=== PATIENT | female | born 1950 | race Caucasian/White ===

== ENCOUNTER 2023-07-13 12:09 | Outpatient (AMB) | payer MEDICARE, SELFPAY ==
--- NOTE | 2023-07-13 11:17 | MHC.OFFWIV ---
Intake Vital Signs 07/13/23 11:30 Weight 181 lb BP 110/70 Blood Pressure Location Rt brachial Position Sitting Pulse 79 Pulse Source Pulse Oximeter Temp 97.8 F Temp Source Temporal Artery Scan Pulse Oximetry (%) 97 Oxygen Delivery Method Room Air Intake Visit Reasons: EST/not feeling well/stomach issues Intake Note: Pt is here c/o body aches, swollen eyes, sore throat and feeling tired. Patient Tobacco Use Status: Never used Tobacco Allergies latex Adverse Reaction (Mild, Verified 07/13/23 11:26) Unknown crystal Adverse Reaction (Mild, Uncoded 07/13/23 11:26) Unknown Do you need a note to return to daycare/school/sports/work: No HPI HPI Comments History of Present Illness Details 9-year-old female that presents for generalized fatigue sore throat swelling of the face and nausea. Denies fever chills symptoms have been present since Tuesday. Denies chest pain or shortness of breath cough PFSH Social History Patient Tobacco Use Status: Never used Tobacco Review of Systems Const Reports fatigue Endo Reports fatigue Physical Exam Vital Signs: Last Vital Signs Temp 97.8 F 07/13/23 11:30 Pulse 79 07/13/23 11:30 BP 110/70 07/13/23 11:30 Pulse Ox 97 07/13/23 11:30 Oxygen Delivery Method Room Air 07/13/23 11:30 Const General: cooperative, no acute distress and alert Orientation/consciousness: patient oriented x3 Limitations: no limitations HEENT Head: Yes normal to inspection Ears: hearing grossly normal bilaterally and external ears normal General nose exam: Normal external nose present Eyes General: appearance normal, both eyes and all related structures Neck Neck: Yes normal visual inspection Chest Chest palpation & inspection: normal inspection of the chest Resp Effort & Inspection: normal respiratory effort, able to speak in complete sentences and no audible wheezes Auscultation: clear to auscultation bilaterally Cardio Rate: regular rate Rhythm: regular rhythm GI Inspection: Yes normal to inspection Palpation (GI): Soft to palpation and nontender Skin General skin exam: no rashes or lesions noted Neuro General: patient oriented x3 Psych Appearance: grossly normal Mental Status: mental status grossly normal Speech and movement: Normal speech and movement present Affect: normal affect Attitude: cooperative Thought process: Normal thought process present Thought content: Normal thought content present Results AMB Rapid Strep AMB Rapid Strep Negative Last Edit by Britney Estrada CMA on 07/13/23 11:32 Results Reviewed Results Reviewed: Laboratory Last Values Strep Scn Rapid Clinic Negative 07/13/23 11:31 Assessment & Plan Assessment & Plan (1) Viral illness: Code(s): B34.9 - Viral infection, unspecified Plan: VSS. Exam patient presents alert and oriented no acute distress exam is otherwise unremarkable note above. Patient with the myriad of symptoms that do not seem to have pointed any clear etiology. If suspicion is viral illness. Will send off cold flu and RSV. Will order EKG given fatigue and weakness. Low suspicion for mono given age group no fever low suspicion to Gomez illness given no recent bites. EKG shows sinus rhythm normal axis with normal intervals no ST segment changes. This time recommend continued symptomatic treatment with fluids rest and Tylenol Motrin as needed. Offer strict return precautions. Discharge instructions, follow up and treatment are discussed with patient in my usual fashion. Alternatives in treatment are also discussed. The patient will return for worsening symptoms or as needed. Advised that any labs/imaging ordered will be followed up on and contact made if further treatment needed. Counseled that patient's condition may require further evaluation and/or treatment. Symptoms of concern for worsening disorder discussed in detail in my customary manner. Patient does verbalize understanding of the plan, there are no apparent barriers to communication. The patient is given the opportunity to ask questions and have them answered to his/her satisfaction Orders: Orders AMB Rapid Strep Screen Today Z13.9 - Encounter for screening, unspecified SARS-CoV2/FLU/RSV Today R09.89 - Other specified symptoms and signs involving the circulatory and respiratory systems AMB EKG-In Office Today R53.1 - Weakness Coding Level of Care Code Est Pt Level 3 (38348) Diagnoses Viral illness B34.9
[2023-07-13 11:30] VITALS: BP 110/70; PULSE 79; TEMP 36.6; O2SAT 97
== END 2023-07-13 12:33 | disposition home or self-care (01) ==
PROVIDERS: PCP Internal Medicine; Visit Provider Physician Assistant
DX: B34.9 Viral infection, unspecified (principal); Z13.9 Encounter for screening, unspecified
CPT/HCPCS: 87880; 99213

== ENCOUNTER 2023-07-13 13:37 | Outpatient (REF) | payer MEDICARE, SELFPAY ==
[2023-07-13 14:52] LABS: Influenza A PCR NEGATIVE (Negative); Influenza B PCR NEGATIVE (Negative); Resp Syncy Virus RNA Qual PCR NEGATIVE (Negative); SARS COV2 PCR INHOUSE NEGATIVE (Negative)
== END 2023-07-13 13:38 | disposition home or self-care (01) ==
LOC: HO.LNP 13:37
PROVIDERS: Visit Provider Physician Assistant
DX: R09.89 Other specified symptoms and signs involving the circulatory and respiratory systems (principal); Z11.52 Encounter for screening for COVID-19
CPT/HCPCS: 0241U

== ENCOUNTER 2023-10-03 09:36 | Outpatient (AMB) | payer MEDICARE, SELFPAY ==
--- NOTE | 2023-10-03 10:12 | MHC.OFFWIV ---
Intake Vital Signs 10/03/23 10:22 Height 5 ft 6.5 in Weight 187 lb 6 oz BMI 29.8 BP 148/80 H Blood Pressure Location Rt brachial Position Sitting Pulse 67 Pulse Source Pulse Oximeter Temp 97.7 F Temp Source Oral Pulse Oximetry (%) 97 Oxygen Delivery Method Room Air Intake Visit Reasons: EP Lft Shoulder pain 116-1995 Intake Note: Pt states she was doing yoga with her granddaughter on an feels pain whenever she moves it. Patient Tobacco Use Status: Never used Tobacco Allergies latex Adverse Reaction (Mild, Verified 10/03/23 10:24) Unknown crystal Adverse Reaction (Mild, Uncoded 07/13/23 11:26) Unknown HPI HPI Comments History of Present Illness Details Patient presents to the walk in for complaint of left shoulder pain after injury 4 days ago She was doing yoga with her granddaughter and noticed some discomfort after. Pain with ROM, most discomfort with overhead reach. Took motrin OTC but states she did not notice any relief. Denies chest pain, palpitations, headache, weakness, dizziness. PFSH Social History Patient Tobacco Use Status: Never used Tobacco Physical Exam Vital Signs: Last Vital Signs Temp 97.7 F 10/03/23 10:22 Pulse 67 10/03/23 10:22 BP 148/80 H 10/03/23 10:22 Pulse Ox 97 10/03/23 10:22 Oxygen Delivery Method Room Air 10/03/23 10:22 BMI result Body Mass Index 29.8 General: awake, alert, oriented. Answers questions appropriately. Fully engaged in examination. Skin: warm, dry, intact HEENT: Normocephalic. Hearing intact. Cardiac: External chest normal in appearance. Respiratory: No cough, audible wheezing or stridor. Abdomen: without gross distension. MS: No obvious swelling or deformities. Left shoulder: limited ROM, pain with overhead reach. Tenderness to palpation over AC joint. Neurological: Oriented to person, place, time and situation. Thought process intact. No gait abnormalities appreciated. Psychiatric: Appropriate mood and affect. Good judgment and insight. Results Reviewed Results Reviewed: XR left shoulder independently reviewed: no fracture or dislocation. Assessment & Plan Assessment & Plan (1) Left shoulder pain: Code(s): M25.512 - Pain in left shoulder (2) Painful arc syndrome of left shoulder: Code(s): M75.102 - Unspecified rotator cuff tear or rupture of left shoulder, not specified as traumatic Plan Left shoulder pain after injury 4 days ago Xray ordered, no acute fracture or disclocation. Sling applied to LUE. Patient advised on use, limit use and continue to do ROM exercised that do not ellicit pain. Tylenol/motrin as needed Follow up with ortho, patient established with [facility] and prefers to make an appt with their office. Return to walk in as needed for any new or worsening symptoms. Orders: Orders XR shoulder LT min 2V Today M25.512 - Pain in left shoulder Coding Level of Care Code Est Pt Level 4 (54499) Diagnoses Left shoulder pain M25.512 Painful arc syndrome of left shoulder M75.102
[2023-10-03 10:22] VITALS: BP 148/80; PULSE 67; TEMP 36.5; O2SAT 97; BMI 29.8
== END 2023-10-03 11:52 | disposition home or self-care (01) ==
PROVIDERS: PCP Internal Medicine; Visit Provider Registered Nurse Emergency
DX: M25.512 Pain in left shoulder (principal); M75.102 Unspecified rotator cuff tear or rupture of left shoulder, not specified as traumatic
CPT/HCPCS: 99213

== ENCOUNTER 2023-10-03 10:48 | Outpatient (REF) | payer MEDICARE, SELFPAY ==
--- NOTE | ~2023-10-03 | XR_ITS ---
EXAMINATION: XR SHOULDER, LEFT CLINICAL INFORMATION: Left shoulder pain COMPARISON: None available. TECHNIQUE: AP external rotation, Grashey, scapular Y, and axillary views of the left shoulder. FINDINGS: The bones and soft tissues are unremarkable. Tiny osteophyte may be present at the inferior aspect of the glenohumeral joint on the humeral head. No fracture. Glenohumeral and acromioclavicular alignment is anatomic with normal joint space. No abnormal soft tissue calcifications. XR/XR shoulder LT min 2V IMPRESSION: No acute finding. Minimal degenerative changes.
== END 2023-10-03 10:49 | disposition home or self-care (01) ==
LOC: HO.HMGCX 10:48
PROVIDERS: PCP Internal Medicine; Visit Provider Registered Nurse Emergency
DX: M25.512 Pain in left shoulder (principal)
CPT/HCPCS: 73030

== ENCOUNTER 2024-09-04 14:40 | Emergency (ER) | payer MEDICARE, SELFPAY ==
--- NOTE | ~2024-09-04 | XR_ITS ---
EXAMINATION: XR HAND/WRIST, LEFT CLINICAL INFORMATION: Deformity status-post fall. COMPARISON: None available. TECHNIQUE: PA, lateral, and oblique views of the left hand and wrist are submitted, together with a dedicated navicular view. FINDINGS: There is bony demineralization. A complex distal radial metaphyseal fracture is seen. There is intra-articular extension of the fracture pattern. The distal radial fracture fragment shows posterior displacement by greater than one half shaft width, with apex volar angulation. There is overriding of fracture fragments by approximately 1.5 cm. The proximal and distal carpal rows are intact. The distal ulna is intact, and there is disruption of the distal radioulnar ligament. There is mild osteoarthritic change of the first carpometacarpal joint. There is mild osteoarthritic change of the interphalangeal joint of the thumb and of the third and fourth distal interphalangeal joints. There is generalized soft tissue swelling of the wrist. No soft tissue gas or foreign body is seen. XR/XR hand wrist LT IMPRESSION: A complex, displaced fracture seen of distal right radial metaphysis. Electronically signed by: Evan Russell MD 09/04/2024 03:32 PM EST
--- NOTE | ~2024-09-04 | XR_ITS ---
EXAMINATION: LEFT ELBOW, LEFT WRIST CLINICAL INFORMATION: Trauma COMPARISON: Left Hand and wrist radiographs from 3:02 PM today TECHNIQUE: 3 views elbow, 3 views wrist FINDINGS: Detail is obscured by a splint. 3 views of the elbow show no effusion, fracture or dislocation. Imaging of the wrist shows an impacted intra-articular distal radial fracture. The degree of impaction appears slightly less compared to the prior study, but the degree of dorsal angulation appears the same. No other definite fractures are seen. Degenerative changes are present at the first CMC joint. XR/XR wrist LT 2V IMPRESSION: Impacted comminuted intra-articular distal radial fracture with dorsal angulation. No other fractures are seen. Electronically signed by: Mark Gill MD 09/04/2024 07:27 PM [facility]
--- NOTE | ~2024-09-04 | XR_ITS ---
EXAMINATION: LEFT ELBOW, LEFT WRIST CLINICAL INFORMATION: Trauma COMPARISON: Left Hand and wrist radiographs from 3:02 PM today TECHNIQUE: 3 views elbow, 3 views wrist FINDINGS: Detail is obscured by a splint. 3 views of the elbow show no effusion, fracture or dislocation. Imaging of the wrist shows an impacted intra-articular distal radial fracture. The degree of impaction appears slightly less compared to the prior study, but the degree of dorsal angulation appears the same. No other definite fractures are seen. Degenerative changes are present at the first CMC joint. XR/XR elbow LT min 3V IMPRESSION: Impacted comminuted intra-articular distal radial fracture with dorsal angulation. No other fractures are seen. Electronically signed by: Mark Gill MD 09/04/2024 07:27 PM [facility]
[2024-09-04 14:42] VITALS: BP 149/71; PULSE 90; RESP 18; TEMP 37; O2SAT 99; BMI 26.6
--- NOTE | 2024-09-04 16:24 | PC.NURSE ---
patient's two rings removed from left ring finger and placed in belongings bag. also requesting right ring removed as well
[2024-09-04] MEDS: Lidocaine HCl 1 % MPF 5 ML VIAL 20 ML INFILTRATI (17:29)
[2024-09-04] MEDS: Morphine Sulfate 4 MG/ML CARTRIDGE IM (17:29)
[2024-09-04] MEDS: Ondansetron ODT 4 MG TAB.RAPDIS TRANSLINGU (17:30)
--- NOTE | 2024-09-04 17:30 | ED.GENADULT ---
HPI - General Adult General Chief complaint: Fall Stated complaint: L wrist injury Time Seen by Provider: 09/04/24 16:49 Source: patient, RN notes reviewed and old records reviewed Mode of arrival: ambulatory Limitations: no limitations History of Present Illness ED Provider: Aayush HPI narrative: 73-year-old female presents for evaluation of a left wrist injury. Patient reports that she was hiking this afternoon around 3:00 p.m.. She reports that she slipped and fell onto her left outstretched arm. She has 10/10 pain to the left wrist. She has some numbness and tingling extending into the left hand. She had not hit her head or lose consciousness pain Denies any left shoulder, elbow pain. She is not on any anticoagulation Related Data Home Medications ?Medication ?Instructions ?Recorded ?Confirmed ascorbic acid (vitamin C) 500 mg mg PO 07/13/23 capsule aspirin 81 mg chewable tablet 81 mg PO DAILY 07/13/23 cholecalciferol (vitamin D3) 25 25 mcg PO DAILY 07/13/23 mcg (1,000 unit) capsule isosorbide mononitrate 30 mg 30 mg PO DAILY 07/13/23 tablet,extended release 24 hr olmesartan 20 mg tablet 20 mg PO DAILY 07/13/23 oxybutynin chloride 10 mg 10 mg PO DAILY 07/13/23 tablet,extended release 24 hr pantoprazole 40 mg tablet,delayed 40 mg PO BID 07/13/23 release rosuvastatin 5 mg tablet 5 mg PO DAILY 07/13/23 Previous Rx's ?Medication ?Instructions ?Recorded morphine 15 mg immediate release 15 mg PO Q4-6H PRN severe pain 09/04/24 tablet (scale score 7-10) #12 tabs ondansetron 4 mg disintegrating 4 mg PO Q8H PRN nausea and 09/04/24 tablet vomiting #20 tabs Allergies Allergy/AdvReac Type Severity Reaction Status Date / Time latex AdvReac Mild Unknown Verified 09/04/24 14:46 ciprofloxacin [From Cipro] AdvReac Rash Verified 09/04/24 14:46 Sulfa (Sulfonamide AdvReac Rash Verified 09/04/24 14:46 Antibiotics) crystal AdvReac Mild Unknown Uncoded 09/04/24 14:46 Review of Systems Constitutional: Constitutional: Denies body ache(s), Denies chills, Denies fever(s) and Denies frequent falls Eyes: Eyes: Denies blurry vision ENT: Denies vertigo and Denies dizziness Cardiovascular: Cardiovascular: Denies chest pain, Denies syncope and Denies dyspnea Respiratory: Respiratory: Denies cough and Denies dyspnea Musculoskeletal: Musculoskeletal: Reports arthralgias, Reports joint swelling, Reports limited range of motion and Reports stiffness Integumentary/Breasts: Skin/Breast: Denies erythema and Denies wounds Neurologic: Denies vertigo, Denies dizziness, Denies syncope and Denies frequent falls [facility] Social History Social History Patient Tobacco Use Status: Never used Tobacco Advance Directives: No Advance Directives Information Provided: Yes Physical Exam ED Vital Signs: Vital Signs - 24 hr 09/04/24 14:42 Temperature 98.6 F Pulse Rate 90 Respiratory Rate 18 Blood Pressure 149/71 H Pulse Oximetry 99 Oxygen Delivery Method Room Air BMI result Body Mass Index 26.6 Const General: healthy appearing, comfortable, no acute distress, alert and awake Nutritional Appearance: well nourished Orientation/consciousness: patient oriented x3 HENMT Head: Yes normocephalic and Yes atraumatic Eyes Eyelids: Yes eyelids normal Conjunctivae: conjunctivae normal Sclerae: sclerae normal Corneas: corneas normal Pupils: Equal, round and reactive pupils present EOM: EOMs intact bilaterally Neck Neck: Yes full ROM Resp Effort & Inspection: normal respiratory effort, able to speak in complete sentences and not labored Skin General skin exam: elasticity normal Neuro General: patient oriented x3 Cranial nerves: Yes Equal, round and reactive pupils present and Yes Bilaterally intact EOM present Cognition (Neuro): normal cognition Extrem Other: There was an obvious deformity to the left wrist was marked edema and ecchymosis. The distal radius has a dorsal deformity. Radial pulses are 2+ and equal. Distal sensation and capillary refill intact the patient is able to move all fingers of the left hand. There was no tenderness to the left elbow Medications Administered Discontinued Medications Generic Name Dose Route Start Last Admin Trade Name Freq PRN Reason Stop Dose Admin Lidocaine HCl 20 ml 09/04/24 17:18 09/04/24 17:29 Lidocaine Hcl 1 % Mpf 5 Ml Vial INFILTRATI 09/04/24 17:19 20 ml ONCE ONE Administration Morphine Sulfate 4 mg 09/04/24 17:04 09/04/24 17:29 Morphine Sulfate 4 Mg/Ml Cartridge IM 12/24/24 17:05 4 mg ONCE ONE Administration Protocol Ondansetron HCl 4 mg 09/04/24 17:04 09/04/24 17:30 Ondansetron Odt 4 Mg Tab.Ronamarino JEFFU 09/04/24 17:05 4 mg ONCE ONE Administration Procedures Orthopedic Joint Reduction Joint #1: Time Out Performed: Yes Side: left Joint Reduction Location: wrist Analgesia: hematoma block Local Anesthesia: lidocaine 1% Amount of anesthesic used (mL): 10 Shoulder Technique Used (if applicable): traction/counter-traction Technique used: traction/counter-traction and direct manipulation Post-reduction neuro exam: intact and no change Post-reduction vascular: intact and no change Post Reduction X-Ray Obtained: Yes Post Reduction X-Ray Results: not reduced (Some improvement in the displacement of the distal radius, however there is still a displaced fracture) Splint Applied: Yes Patient Tolerated Procedure: well Medical Decision Making Medical Decision Making MDM Narrative: Patient has a complex fracture of the left distal radius. The ulna appears intact. I discussed with orthopedics who agrees with hematoma block, finger traps and attempting to reduce the radial fracture. There are no other injuries, the patient denies head strike, no obvious trauma to the head or neck. She is not altered Differential Diagnosis Differential Diagnoses: The differential diagnosis associated with the presentation includes Left wrist fracture Left wrist sprain Contusion Dislocation Consult Healthcare Provider Management of the patient was discussed with: Instrument Maker And Repairer (Alfredo Alfredo, orthopedics) Independent Interpretation I performed an independent interpretation of an: Plain X-Ray (Distal radius fracture) Radiology Impression Discussion of test interpretation with radiology: I have reviewed the radiologist's reading. Radiologist Impression: FINDINGS: There is bony demineralization. A complex distal radial metaphyseal fracture is seen. There is intra-articular extension of the fracture pattern. The distal radial fracture fragment shows posterior displacement by greater than one half shaft width, with apex volar angulation. There is overriding of fracture fragments by approximately 1.5 cm. The proximal and distal carpal rows are intact. The distal ulna is intact, and there is disruption of the distal radioulnar ligament. There is mild osteoarthritic change of the first carpometacarpal joint. There is mild osteoarthritic change of the interphalangeal joint of the thumb and of the third and fourth distal interphalangeal joints. There is generalized soft tissue swelling of the wrist. No soft tissue gas or foreign body is seen. XR/XR hand wrist LT IMPRESSION: A complex, displaced fracture seen of distal right radial metaphysis. Electronically signed by: Evan Russell MD 09/04/2024 03:32 PM [facility] Discharge Plan Discharge Clinical Impression: Fracture of wrist Patient Disposition: Home, Self-Care Instructions: Wrist Fracture in Adults (ED) Additional Instructions: You have a fracture of the distal radius. The ulna is intact. Keep the splint on until you follow-up with orthopedics. I recommend that you call on to schedule follow-up. You may follow-up with doing orthopedics if you prefer, but I also placed a referral to our orthopedic team Use ibuprofen/Tylenol for pain. You may use morphine for more severe, breakthrough pain This may make you drowsy, do not drink alcohol or drive after taking it Prescriptions: New morphine 15 mg tablet 15 mg PO Q4-6H PRN (Reason: severe pain (scale score 7-10)) Qty: 12 0RF Rx Instructions: Partial Fill upon patient request. ondansetron 4 mg tablet,disintegrating 4 mg PO Q8H PRN (Reason: nausea and vomiting) Qty: 20 0RF No Action olmesartan 20 mg tablet 20 mg PO DAILY isosorbide mononitrate 30 mg tablet extended release 24 hr 30 mg PO DAILY rosuvastatin 5 mg tablet 5 mg PO DAILY pantoprazole 40 mg tablet,delayed release (DR/EC) 40 mg PO BID aspirin 81 mg tablet,chewable 81 mg PO DAILY oxybutynin chloride 10 mg tablet extended release 24hr 10 mg PO DAILY cholecalciferol (vitamin D3) 25 mcg (1,000 unit) capsule 25 mcg PO DAILY ascorbic acid (vitamin C) 500 mg capsule PO Print Language: [place]
[2024-09-04 19:10] VITALS: BP 132/86; PULSE 85; RESP 16; TEMP 37; O2SAT 99
== END 2024-09-04 19:10 | disposition home or self-care (01) ==
PROVIDERS: Emergency Provider Emergency Medicine; PCP Internal Medicine
DX: S62.102A Fracture of unspecified carpal bone, left wrist, initial encounter for closed fracture (principal); M79.642 Pain in left hand; R60.0 Localized edema; M25.532 Pain in left wrist; M25.522 Pain in left elbow; W20.8XXA Other cause of strike by thrown, projected or falling object, initial encounter; Y93.01 Activity, walking, marching and hiking; Y92.828 Other wilderness area as the place of occurrence of the external cause; Y99.8 Other external cause status; Z79.899 Other long term (current) drug therapy
CPT/HCPCS: 25605; 29125; 73080; 73100; 73110; 73130; 96372; 99284; J2003; J2270

== ENCOUNTER 2025-05-20 09:42 | Outpatient (AMB) | payer MEDICARE, SELFPAY ==
--- OUTSIDE RECORDS SUMMARY | 2025-05-20 11:05 | XMS_ITS | Encounter Summary ---
Author Organization [facility] Address [address] [place] [address] Care Team Providers Care Trimming Machine Set Up Operator Name Role Phone Nader Rodgers MD Primary Care Provider [phone] Everett Degroot MD Unavailable Unava ilable Juan Rice MD Unavailable [phone] Maxwell Leonardo MD Unavailable Unavailable Laura Delaney APRN Unavailable [phone] Encounter Details Date Type Department Care Team (Late st Contact Info) Description 01/10/2020 Scanned Document [facility] [place] at [address] [address] Provider, Generic Social History Tobacco Use Types Packs/Day Years Used Date Smoking Tobacco: Never Assessed Comments Unknown Sex and Gender Information Value Date Recorded Sex Assigned at Not on file Legal Sex Female 3:56 PM EDT Gender Identity Not on file Sexual Orientation Not on file COVID-19 Exposure Response Date Recorded In the last month, have you been in contact with someone who was confirmed or suspected to have Coronavirus / COVID-19? No / Unsure 12/27/2019 12:33 PM EDT documented as of this encounter Plan of Treatment Not on file documented as of this encounter Procedures Procedure Name Priority Date/Time Associated Diagnosis Comments CARDIOLOGY ECHO 01/10/2020 2:23 PM EDT documented in this encounter Results * CARDIOLOGY ECHO (01/10/2020 2:23 PM EDT) Anatomical Region Laterality Modality Other Narrative 01/10/2020 2:23 PM EDT Ordered by an unspecified provider. us Generic Provider HX AMB PROCEDURES Final Result documented in this encounter Visit Diagnoses Not on filedocumented in this encounter Care Teams Trimming Machine Set Up Operator Relationship Specialty Start Date End Date Nader Rodgers MD [address] [place] [address] PCP - General 12/27/19 Everett Degroot MD [address] [place] [address] [employer] Captain Cardiovascular Disease 12/27/19 Juan Rice MD [address] [place] [address] Surgery, Orthopedic 02/12/20 Maxwell Leonardo MD [address] [place] [id number] Referring Provider Gastroenterology 02/12/20 Laura Delaney APRN [address] [place] [id number] Advanced Practitioner Sleep Medicine 02/12/20 documented as of this encounter
--- OUTSIDE RECORDS SUMMARY | 2025-05-20 11:05 | XMS_ITS | Clinical Summary ---
Author Organization [facility] Address [address] [place] [address] Care Team Providers Care Orchestra Conductor Name Role Phone Antonio Cristobal MD Primary Care Provider [phone] Allergies Active Allergy Reactions Criticality Noted Date Comments Ciprofloxacin 07/26/2018 Medications Medication Sig Dispensed Refills Start Date End Date Status dilTIAZem (dilTIAZem CD) 240 MG 24 hr capsule Take 240 mg by mouth daily. 0 Active pantoprazole (PROTONIX) 40 MG tablet Take 40 mg by mouth every morning on an empty stomach. 0 Active isosorbide dinitrate (ISORDIL) 30 MG tablet Take 30 mg by mouth 4 (four) times a day. 0 Active Active Problems Problem Noted Date Diagnosed Date Snoring 08/16/2018 Polycythemia, secondary 07/26/2018 Social History Tobacco Use Types Packs/Day Years Used Date Smoking Tobacco: Never Smokeless Tobacco: Never Alcohol Use Standard Drinks/Week Comments Yes 0 (1 standard drink = 0.6 oz pur e alcohol) weekend Sex and Gender Information Value Date Recorded Sex Assigned at Not on file Gender Identity Not on file Sexual Orientation Not on file Last Filed Vital Signs Vital Sign Reading Time Taken Comments Blood Pressure 149/75 08/16/2018 10:55 AM EST Pulse 65 08/16/2018 10:55 AM EST Temperature 36.5 C (97.7 F) 08/16/2018 10:55 AM EST Respiratory Rate - - Oxygen Saturation - - Inhaled Oxygen Concentration - - Weight 83.5 kg (184 lb) 08/16/2018 10:54 AM EST Height 165.1 cm (5' 5 ) 08/16/2018 10:54 AM EST Body Mass Index 30.62 08/16/2018 10:54 AM EST Plan of Treatment Health Maintenance Due Date Last Done Comments Hepatitis C Screening 1950 COVID-19 Vaccine (#1) 04/30/1951 Depression Screening 1964 Preventative Health Evaluation 1970 DTap / Tdap / Td (1 - Tdap) 1971 Colon Cancer Screening (Colonoscopy) 1997 Breast Cancer Screening (Mammogram) 2002 Shingrix-Zoster Vaccine (1 of 2) 2002 Fall Risk Assessment 2017 Osteoporosis Screening (DEXA Scan) 2017 Pneumococcal Vaccine (1 of 1 - PCV) 2017 Influenza Vaccine (#1) 2025 RSV Adult > 60+ Yrs or Pregn ant (1 - 1-dose 75+ series) 2027 Hepatitis B Vaccines Aged Out No long er eligible based on patient's age to complete this topic RSV Ped < 20 months Aged Out No longe r eligible based on patient's age to complete this topic Care Teams Orchestra Conductor Relationship Specialty Start Date End Date Antonio Cristobal MD [address] [facility] [address] [place] [address] PCP - [employer] 07/10/18
--- OUTSIDE RECORDS SUMMARY | 2025-05-20 11:05 | XMS_ITS | Clinical Summary ---
Author Organization [facility] [employer] Address [address] [place] [address] Phone Care Team Providers Care Company Doctor Name Role Phone Nader Rodgers MD Primary Care Provider [phone] Allergies Active Allergy Reactions Criticality Noted Date Comments Ciprofloxacin Hives 07/26/2018 Latex 09/21/2022 Nickel 05/27/2021 Sulfa (Sulfonamide Antibiotics) 06/13 Medications ascorbic acid (VITAMIN C) 500 mg chewable tablet Chew 2 tablets (1,000 mg total) 1 (one) time each day. Active calcium carb/mag/vitamin D2 (RAZRBLQ-TRIZZXRJI-KWVHU IN D2 ORAL) Take 1,200 mg by mouth 1 (one) time each day. Active cholecalciferol (VITAMIN D-3) 25 mcg (1,000 unit) capsule Take 25 mg by mouth daily. Active olmesartan (BENICAR) 20 mg tablet Take 1 tablet (20 mg total) by mouth 1 (one) time each day. Active omega-3 (FISH OIL) 360-1,200 mg capsule Take by mouth. Active valacyclovir HCl (valACYclovir, bulk,) 100 % powder 1 mg by Does not apply route as needed. Active rosuvastatin (CRESTOR) 10 mg tabletIndications:Pure hypercholesterolemia Take 1 tablet (10 mg total) by mouth 1 (one) time each day. 90 each 1 09/29/19 25 Active dilTIAZem XR (DILACOR XR) 240 mg 24 hr capsule TAKE ONE CAPSULE BY MOUTH ONCE DAILY 90 capsule 1 11/02/19 25 Active oxyBUTYnin XL (DITROPAN-XL) 10 mg 24 hr tablet Take 1 tablet (10 mg total) by mouth 1 (one) time each day. Do not crush, chew, or split. Active lactobacillus acidoph-l.bulgar 100 million cell granules in packet Take 1 packet by mouth. Active pantoprazole (PROTONIX) 40 mg EC tabletIndications:Gastro esophageal reflux disease without esophagitis Take 1 tablet (40 mg total) by mouth 1 (one) time each day. Do not crush, chew, or split. 90 each 3 03/18/20 25 026 Active apixaban (Eliquis) 5 mg tabletIndications:Paroxy smal atrial fibrillation (CMS/HCC V24, CMS/HCC V28) TAKE ONE TABLET BY MOUTH TWICE DAILY 180 tablet 1 03/26/20 25 Active isosorbide mononitrate (IMDUR) 30 mg 24 hr tablet TAKE ONE TABLET BY MOUTH ONCE DAILY 90 tablet 1 04/10/20 25 Active cefadroxil 500 mg capsule Take 1 capsule (500 mg total) by mouth 2 (two) times a day for 10 days. 20 capsule 04/23/20 25 025 Active Problems Problem Noted Date Diagnosed Date Paroxysmal atrial fibrillation (CMS/HCC V24, CMS /HCC V28) 08/23/2024 Assessment & Plan (01/01/2025 12:57 PM EDT): Orders: ECG 12 lead Assessment & Plan (11/12/2024 10:37 AM EST): Patient has a history of paroxysmal atrial fibrillation/atrial flutter noted on 48-hour Holter monitor which lasted approximately 2 hours and 20 minutes. Her heart rate was elevated at the time of the episode of atrial fibrillation/atrial flutter. We discussed this extensively in depth today including her recent testing, anticoagulation, risks, and heart rate control. She has a [id number] or 4 and continues on anticoagulation therapy with Eliquis 5 mg orally twice daily based on her age, weight, and kidney function. We discussed alternative blood thinning agents as well given she reports it had been quite expensive for her, however she would like to continue Eliquis at this time. She is also on rate control therapy with diltiazem and her heart rate is well-controlled today in a regular normal rhythm. Given she continues to have occasional symptoms of brief intermittent episodes of palpitations, dizziness and fatigue which were noted during her symptoms during her recent 48-hour Holter monitor, recommend she be evaluated by electrophysiology Dr. Quezada for further evaluation to consider possible rhythm control therapy strategy with possible ablation. She will continue on rate control therapy with diltiazem. We reviewed the possible triggers of palpitations including caffeine consumption, alcohol consumption, cigarette smoking, inadequate sleeping patterns, and stress. At this point, the patient will attempt to avoid the usual triggers. She will continue to wear her CPAP on a nightly basis and avoid excessive alcohol. Thyroid within normal limits. Assessment & Plan (08/23/2024 8:45 AM EST): The patient has been experiencing episodes of palpitations. We will order a Holter monitor to evaluate for any underlying arrhythmias as a cause of her symptoms. We will also order an echocardiogram to rule out any significant structural heart disease. Orders: Cardiac holter monitor (<= 48 hours); Future Coronary artery disease invo lving jamul coronary artery of jamul heart with angina pectoris ([facility] V24) 08/23/2024 Assessment & Plan (11/12/2024 10:37 AM EST): As part of the patient's preoperative cardiovascular risk assessment, she underwent a nuclear stress test which was noted to be abnormal with a medium size moderate severity reversible perfusion defect suggestive with ischemia. Subsequent left heart catheterization showed minimal luminal regularities in the left main, LAD, RCA and ENGRAVER [employer] of the left circumflex. Medical therapy was advised. She continues on medical therapy with rosuvastatin, diltiazem, isosorbide mononitrate and Eliquis as an antithrombotic. She denies any anginal symptoms. Will continue her current therapies. Assessment & Plan (08/23/2024 8:48 AM EST): The patient has a history of nonobstructive coronary artery disease noted on a previous cardiac CT scan. Cardiac CT scan done in February 2014 showed mild calcification of the left main without significant stenosis, mild calcification in the LAD without significant stenosis, no significant plaque or stenosis in the RCA, and a probable moderate stenosis in the mid to distal circumflex (small caliber vessel). The patient has been managed medically. She is currently on medical therapy with aspirin, diltiazem, isosorbide mononitrate, and rosuvastatin. On today's visit, she complains of occasional episodes of chest discomfort which occur at rest and are not induced or worsened by exertion. The description of her symptoms is consistent with atypical chest discomfort. Interestingly, the patient is able to exercise regularly without developing any symptoms of chest discomfort. The patient also does have a history of possible vascular angina. Given her symptoms of chest discomfort, further evaluation is warranted. Will proceed with a cardiac CT scan to rule out the presence of significant obstructive coronary artery disease as a cause of her symptoms. The use of a cardiac CT scan is recommended by the ACC chronic coronary artery disease guidelines and the ACC chest pain guidelines. In the meantime, we will continue her current medication regimen. The patient was specifically instructed to avoid any strenuous physical exercise at least until all of the recommended cardiac testing has been completed completed and we have been able to discuss the results of the cardiac tests with her. The patient has a history of coronary artery disease. During today's visit, we reviewed the warning signs that should prompt an urgent medical evaluation. Specifically, we discussed that the patient should go to the hospital if she develops any chest discomfort at rest lasting for more than 5 minutes or worsening chest discomfort with exertion. Orders: CT Angio Heart w 3D Imaging/Function; Future Transthoracic echocardiogram (TTE) complete with PRN contrast, bubble, strain, and 3D order panel; Future perflutren lipid microsphere (DEFINITY) 1.3 mL in sodium chloride 0.9% 8.7 mL injection CBC and differential; Future CT Angio Heart w 3D Imaging/Function CBC and differential HLD (hyperlipidemia) 02/10/2021 Overview (07/20/2024): Last Assessment & Plan: Patient with history of hyperlipidemia. She is on rosuvastatin 5 mg orally daily. She did an updated lipid panel earlier today. Assessment & Plan (11/12/2024 10:37 AM EST): Patient has a history of hyperlipidemia as well as a history of coronary artery disease. Recent fasting lipid panel showed an LDL cholesterol of 82 and her rosuvastatin was increased to 10 mg orally daily. She will continue current therapies. Assessment & Plan (08/23/2024 8:45 AM EST): The patient has a history of hyperlipidemia. The patient is currently on rosuvastatin 5 mg orally daily. We will order a new lipid panel to evaluate the patient's current lipid control and determine if any adjustment are needed in the lipid lowering therapy. Orders: Comprehensive metabolic panel; Future Thyroid stimulating hormone; Future Lipid panel; Future Comprehensive metabolic panel Thyroid stimulating hormone Lipid panel HTN (hypertension) 02/10/2021 Overview (07/20/2024): Last Assessment & Plan: She with history of arterial hypertension. Her blood pressure is well controlled today. She will continue her current antihypertensive medication regimen. Assessment & Plan (11/12/2024 10:37 AM EST): Blood pressure well-controlled today. She will continue her current antihypertensive medication regimen as prescribed. Assessment & Plan (08/23/2024 8:45 AM EST): The patient has a history of arterial hypertension. The patient's blood pressure today was noted to be well controlled. We'll continue the current antihypertensive medication regimen. Microvascular angina ([facility] V24) 02/10/2021 Overview (07/20/2024): Last Assessment & Plan: Patient with history of apparent microvascular angina. She has had multiple evaluations of her coronary arteries in the past including a left heart catheterization in [address] in 2013. She has not had any evidence of significant CAD. Her symptoms remain well controlled with the use of diltiazem. She will continue her current therapy. Assessment & Plan (08/23/2024 8:45 AM EST): The patient has a history of possible microvascular angina given symptoms of exertional chest discomfort in the past and absence of significant obstructive CAD on a prior cardiac CT scan. She was started on medical therapy with diltiazem isosorbide mononitrate. This led to a resolution of her symptoms of exertional chest discomfort. On today's visit, the patient states that she is able to exercise regularly without developing any symptoms of chest discomfort. Nevertheless, she has been noticing occasional episodes of a mild chest discomfort sensation that occurs at rest and is not induced or worsened by exertion. Given her description of symptoms of chest discomfort, we will proceed with further testing with a cardiac CT scan to rule out the presence of significant obstructive coronary artery disease. In the meantime, we will continue her current medication regimen. Orders: ECG 12 lead Resolved Problems Problem Noted Date Diagnosed Date Resolved Date Syncope 09/21/2022 08/23/2024 Overview (07/20/2024): Last Assessment & Plan: Patient with an apparent episode of syncope in October 2021. She denies syncopal episodes since. Recommended we proceed with an echocardiogram to evaluate her heart structure and function. Also recommended a 30-day R OCT to evaluate for any underlying arrhythmias. Encounters Date Type Department Care Team Description 04/23/2025 11:42 AM EDT - 04/23/2025 2:25 PM EDT Emergency [facility] Emergency [address] [place] [address] Tomi Estrada MD Cystitis (Primary Dx) Discharge Disposition: Home or Self Care 04/19/2025 Lab Requisition [facility] - Main Lab [address] [facility] [place] [phone] Clemente Weems PA Urinary tract infection, site not specified 03/18/2025 10:30 AM EDT Office Visit Gastroenterology - [address] [place] [phone] Mayte Brown PA Gastroesophageal reflux disease without esophagitis from Last 3 Months Surgical History Surgery Date Site/Laterality Comments CARDIAC CATHETERIZATION DONE ON 09/26/2024 AT [facility] INDICATIONS: Atypical chest pain. ESOPHAGOGASTRODUODENOSCOPY 08/10/2022 COLONOSCOPY 08/10/2022 recall 5 years ESOPHAGOGASTRODUODENOSCOPY 08/23/2018 Family History Medical History Relation Name Comments CABG Father Esophageal cancer Father Hyperlipidemia Father Hypertension Father Colon cancer Neg Hx Relation Name Status Comments Father Social History Tobacco Use Types Packs/Day Years Used Date Smoking Tobacco: Never Smokeless Tobacco: Never Alcohol Use Standard Drinks/Week Comments Yes 0 (1 standard drink = 0.6 oz pur e alcohol) occ 1 glass wine per wk Comments Unknown Sex and Gender Information Value Date Recorded Sex Assigned at Not on file Legal Sex Female 4:09 PM EST Gender Identity Not on file Sexual Orientation Not on file Obstetrics History Last Filed Vital Signs Vital Sign Reading Time Taken Comments Blood Pressure 107/63 04/23/2025 12:29 PM EDT Pulse 65 04/23/2025 12:29 PM EDT Temperature 36.6 C (97.9 F) 04/23/2025 12:29 PM EDT Respiratory Rate 17 04/23/2025 12:29 PM EDT Oxygen Saturation 94% 04/23/2025 12:29 PM EDT Inhaled Oxygen Concentration - - Weight 81.6 kg (180 lb) 04/23/2025 12:16 PM EDT Height 167.6 cm (5' 6 ) 04/23/2025 12:16 PM EDT Body Mass Index 29.05 04/23/2025 12:16 PM EDT Plan of Treatment Upcoming Encounters Date Type Department Care Team (Late st Contact Info) Description 06/26/2025 10:50 AM EDT Office Visit [facility] [address] [place] [address] [place] [phone] Everett Degroot MD [address] [place] [address] [address] [place] [phone] 03/18/2026 8:00 AM EDT Office Visit Gastroenterology - [address] [place] [phone] Mayte Brown PA [address] [place] [phone] Health Maintenance Due Date Last Done Comments Breast Cancer Screening 1950 Zoster Vaccines (2 of 3) 04/20/2013 02/23/2013, 02/10 Pneumococcal Vaccine: 50+ Years (2 of 2 - PCV) 12/27/2019 12/26/2018, 02/22/2013, 02/21/2013 Colorectal Cancer Screening: Colonoscopy 08/21/2022 Falls Risk Assessment 08/21/2022 Hepatitis C Screening 08/21/2022 Medicare Annual Wellness Visit 08/21/2022 Osteoporosis Screening (Bone Density Screening) 08/21/2022 Social Influencers of Health Screening 08/21/2022 DTaP,Tdap,and Td Vaccines (4 - Td or Tdap) 02/24/2023 02/24/2013, 02/21/2013, 03/14/2000 Depression Screening 09/12/2024 COVID-19 Vaccine ( season) 2025 06/01/2024, 06/09/2023, 03/01/2023, Additional history exists Influenza Vaccine (#1) 2025 , 05/12/2023, 05/14/2022, Additional history exists Hypertension/CHF/CAD Annual BMP Blood Test 04/23/2026 04/23/2025, 09/25/2024, 08/27/2024 Cholesterol Screening (Lipid Panel) 08/27/2029 08/27/2024 Hepatitis A Vaccines Aged Out 01/21/2014, 08/20/2013, 07/20/2013 No longer eligible based on patient's age to complete this topic Hepatitis B Vaccines Completed 01/21/2014, 08/20/2013, 07/20/2013 RSV Immunization Adult Patients Completed 11/01/2023 HIB Vaccines Aged Out No longer eligi ble based on patient's age to complete this topic HPV Vaccines Aged Out No longer eligi ble based on patient's age to complete this topic IPV Vaccines Aged Out No longer eligi ble based on patient's age to complete this topic MMR Vaccines Aged Out No longer eligi ble based on patient's age to complete this topic Meningococcal ACWY Vaccine Aged Out N o longer eligible based on patient's age to complete this topic Meningococcal B Vaccine Aged Out No l onger eligible based on patient's age to complete this topic RSV Immunization Patients Under 20 months Aged Out No longer eligible based on patient's age to complete this topic Varicella Vaccines Aged Out No longer eligible based on patient's age to complete this topic Procedures Procedure Name Priority Date/Time Associated Diagnosis Comments BASIC METABOLIC PANEL STAT 04/23/2025 1:15 PM EDT CBC WITH AUTO DIFFERENTIAL STAT 04/23/2025 11:55 AM EDT CBC AND DIFFERENTIAL STAT 04/23/2025 11:55 AM EDT [facility] URINE CULTURE TUBE STAT 04/23/2025 8:40 AM EDT URINALYSIS WITH REFLEX MICROSCOPIC AND CULTURE STAT 04/23/2025 8:40 AM EDT URINALYSIS WITH REFLEX MICROSCOPIC AND CULTURE STAT 04/23/2025 8:40 AM EDT CULTURE URINE STAT 04/23/2025 8:40 AM EDT CULTURE URINE Routine 04/19/2025 5:33 PM EDT Urinary tract infection, site not specified LIPID PANEL Routine 08/27/2024 2:33 PM EST Pure hypercholesterolemia from Last 3 Months or Most Recently Relevant to Health Maintenance Results * Basic metabolic panel (04/23/2025 1:15 PM EDT) Sodium 140 133 - 145 mmol/L LAB CHEMISTRY METHOD 04/23/2025 2:15 PM EDT [facility] Potassium 4.4 3.5 - 5.5 mmol/L LAB CHEMISTRY METHOD 04/23/2025 2:15 PM T [facility] Chloride 106 96 - 110 mmol/L LAB CHEMISTRY METHOD 04/23/2025 2:15 PM [facility] CO2 28 21 - 32 mmol/L LAB CHEMISTRY METHOD 04/23/2025 2:15 PM [facility] Anion Gap 6 3 - 11 LAB CHEMISTRY METHOD 04/23/2025 2:15 PM [facility] Glucose 97 70 - 100 mg/dL LAB CHEMISTRY METHOD 04/23/2025 2:15 PM T [facility] BUN 13 5 - 25 mg/dL LAB CHEMISTRY METHOD 04/23/2025 2:15 PM EDT [facility] Creatinine 0.79 0.50 - 1.10 mg/dL LAB CHEMISTRY METHOD 04/23/2025 2:15 PM EDT [facility] eGFR 80 >=60 mL/min/1. 73m2 LAB CHEMISTRY METHOD 04/23/2025 2:15 PM EDT [facility] Comment:Calculation based on the Chronic Kidney Disease Epidemiology Collaboration (CKD-EPI) equation refit without adjustment for race. BUN/Creatinine Ratio 16.5 LAB CHEMISTRY METHOD 04/23/2025 2:15 PM EDT [facility] Calcium 9.2 8.5 - 10.5 mg/dL LAB CHEMISTRY METHOD 04/23/2025 2:15 PM EDT [facility] Blood Venous blood specimen / Unknown Venipuncture / Unknown 04/23/2025 1:15 PM EDT 04/23/2025 1:41 PM EDT us Tomi Estrada MD LAB BLOOD ORDERABLES Final Resul t [facility] [address] [place] [address], * (ABNORMAL) CBC auto differential (04/23/2025 11:55 AM EDT) WBC 9.4 4.8 - 10.8 K/mcL LAB HEMETOLOGY METHOD 04/23/2025 12:23 PM EDT [facility] RBC 5.30(H) 3.80 - 4.80 M/mcL LAB HEMETOLOGY METHOD 04/23/2025 12:23 PM EDT [facility] Hemoglobin 15.1 11.5 - 16.0 g/dL LAB HEMETOLOGY METHOD 04/23/2025 12:23 PM EDT [facility] Hematocrit 47.0 35.0 - 47.0 % LAB HEMETOLOGY METHOD 04/23/2025 12:23 PM [facility] MCV 88.2 79.0 - 98.0 FL LAB HEMETOLOGY METHOD 04/23/2025 12:23 PM [facility] MCH 28.3 27.0 - 32.0 pcg LAB HEMETOLOGY METHOD 04/23/2025 12:23 PM [facility] MCHC 32.1 32.0 - 37.0 g/dL LAB HEMETOLOGY METHOD 04/23/2025 12:23 PM [facility] RDW 13.0 11.0 - 15.0 % LAB HEMETOLOGY METHOD 04/23/2025 12:23 PM [facility] Platelets 229 130 - 400 K/mcL LAB HEMETOLOGY METHOD 04/23/2025 12:23 PM [facility] MPV 11.5(H) 7.0 - 11.0 FL LAB HEMETOLOGY METHOD 04/23/2025 12:23 PM [facility] NRBC 0.0 <1.0 % LAB HEMETOLOGY METHOD 04/23/2025 12:23 PM [facility] NRBC Absolute 0.00 <0.10 K/mcL LAB HEMETOLOGY METHOD 04/23/2025 12:23 PM [facility] Neutrophils Relative 65.2 % LAB HEMETOLOGY METHOD 04/23/2025 12:23 PM [facility] Lymphocytes Relative 21.7 % LAB HEMETOLOGY METHOD 04/23/2025 12:23 PM [facility] Monocytes Relative 9.1 % LAB HEMETOLOGY METHOD 04/23/2025 12:23 PM [facility] Eosinophils Relative 2.6 % LAB HEMETOLOGY METHOD 04/23/2025 12:23 PM [facility] Basophils Relative 0.8 % LAB HEMETOLOGY METHOD 04/23/2025 12:23 PM EDT [facility] Immature Granulocytes Relative 0.6 % LAB HEMETOLOGY METHOD 04/23/2025 12:23 PM EDT [facility] Neutrophils Absolute 6.14 1.50 - 7.00 K/mcL LAB HEMETOLOGY METHOD 04/23/2025 12:23 PM EDT [facility] Lymphocytes Absolute 2.05 1.00 - 5.00 K/mcL LAB HEMETOLOGY METHOD 04/23/2025 12:23 PM EDT [facility] Monocytes Absolute 0.86 0.20 - 1.00 K/mcL LAB HEMETOLOGY METHOD 04/23/2025 12:23 PM [facility] Eosinophils Absolute 0.25 0.00 - 0.50 K/mcL LAB HEMETOLOGY METHOD 04/23/2025 12:23 PM [facility] Basophils Absolute 0.08 0.00 - 0.20 K/mcL LAB HEMETOLOGY METHOD 04/23[facility]25 [facility] Immature Granulocytes Absolute 0.06(H) 0.00 - 0.03 K/mcL LAB HEMETOLOGY METHOD 04/23/2025 12:23 PM [facility] Blood Venous blood specimen / Unknown Venipuncture / Unknown 04/23/2025 11:55 AM EDT 04/23/2025 12:14 PM EDT us Tomi Estrada MD LAB BLOOD ORDERABLES Final Resul t [facility] [address] [place] [address], * (ABNORMAL) Urinalysis with reflex microscopic and culture (04/23/2025 8:40 AM EDT) Specific [place] Urine 1.008 1.003 - 1.030 LAB URINALYSIS - AUTOMATED METHOD 04/23/2025 9:33 AM [facility] pH, Urine 7.0 5.0 - 8.0 pH LAB URINALYSIS - AUTOMATED METHOD 04/23/2025 9:33 AM [facility] Leukocytes, Urine Small(A) Negative LAB URINALYSIS - AUTOMATED METHOD 04/23/2025 9:33 AM [facility] Nitrite, Urine Negative Negative LAB URINALYSIS - AUTOMATED METHOD 04/23/2025 9:33 AM [facility] Protein, Urine Negative <=Trace mg/dL LAB URINALYSIS - AUTOMATED METHOD 04/23/2025 9:33 AM [facility] Glucose, Urine Negative Negative mg/dL LAB URINALYSIS - AUTOMATED METHOD 04/23/2025 9:33 AM [facility] Ketones, Urine Negative Negative mg/dL LAB URINALYSIS - AUTOMATED METHOD 04/23/2025 9:33 AM [facility] Urobilinogen, Urine 0.2 0.2 - 1.0 mg/dL LAB URINALYSIS - AUTOMATED METHOD 04/23/2025 9:33 AM [facility] Bilirubin, Urine Negative Negative LAB URINALYSIS - AUTOMATED METHOD 04/23/2025 9:33 AM [facility] Blood, Urine Negative Negative LAB URINALYSIS - AUTOMATED METHOD 04/23/2025 9:33 AM [facility] RBC, Urine 0.6 0 - 4 /HPF LAB URINALYSIS - AUTOMATED METHOD 04/23/2025 9:33 AM [facility] WBC, Urine 8.6(H) 0 - 4 /HPF LAB URINALYSIS - AUTOMATED METHOD 04/23/2025 9:33 AM [facility] Squamous Epithelial, Urine 45 0 - 60 /LPF LAB URINALYSIS - AUTOMATED METHOD 04/23/2025 9:33 AM EDT [facility] Bacteria, Urine Few(A) Negative /HPF LAB URINALYSIS - AUTOMATED METHOD 04/23/2025 9:33 AM EDT [facility] Hyaline Casts, Urine 0.8 0 - 3 /LPF LAB URINALYSIS - AUTOMATED METHOD 04/23/2025 9:33 AM EDT [facility] Urine Urine specimen obtained by clean catch procedure / Unknown Non-blood Collection / Unknown 04/23/2025 8:40 AM EDT 04/23/2025 9:16 AM EDT Jesus Blum MD LAB URINE ORDERABLES Final Result Performing Organization Address City/[facility]/ZIP Co de Phone Number [facility] [address] [place] [address], [place] [phone] * [facility] urine culture tube (04/23/2025 8:40 AM EDT) Extra Tube Hold for add-ons. 04/23/2025 11:01 AM EDT [facility] Comment:Auto resulted. Urine Urine specimen obtained by clean catch procedure / Unknown Non-blood Collection / Unknown 04/23/2025 8:40 AM EDT 04/23/2025 9:16 AM EDT Jesus Blum MD LAB URINE ORDERABLES Final Result Performing Organization Address City/[facility]/ZIP Co de Phone Number [facility] [address] [place] [address], [place] [phone] * (ABNORMAL) Culture urine (04/23/2025 8:40 AM EDT) Only the most recent of2 resultswithin the time period is included. Culture, Urine >=100,000 CFU/mL Pseudomonas aeruginosa(A) STEPHANE 04/25/2025 9:10 AM EDT [facility] Comment: This is an edited result. Previous organism was Gram negative bacilli on 04/24/2025 at 0803 EDT. Urine Urine specimen obtained by clean catch procedure / Unknown Non-blood Collection / Unknown 04/23/2025 8:40 AM EDT 04/23/2025 9:33 AM EDT Narrative Organism Antibiotic Method Susceptibility Pseudomonas aeruginosa Piperacillin/Tazobactam STEPHANE <=4 ug/ml: Susceptible Pseudomonas aeruginosa Ceftazidime STEPHANE 2 ug/ml: Susceptible Pseudomonas aeruginosa Cefepime STEPHANE 2 ug/ml: Susceptible Pseudomonas aeruginosa Meropenem STEPHANE <=0.25 ug/ml: Susceptible Pseudomonas aeruginosa Amikacin STEPHANE 4 ug/ml: Susceptible Pseudomonas aeruginosa Ciprofloxacin STEPHANE 0.25 ug/ml: Susceptible Pseudomonas aeruginosa Levofloxacin STEPHANE 1 ug/ml: Susceptible Jesus Blum MD LAB MICROBIOLOGY - GENERAL ORDERABLES Final Result [facility] [address] [place] [address], * Lipid panel (08/27/2024 2:33 PM EST) Cholesterol Total 173 100 - 199 mg/dL [facility] Triglycerides 117 0 - 149 mg/dL [facility] 1 HDL Cholesterol 71 >39 mg/dL [facility] 1 VLDL Cholesterol Calculated 20 5 - 40 mg/dL [facility] 1 LDL Chol Calc (NIH) 82 0 - 99 mg/dL [facility] 1 Blood Venous blood specimen / Unknown 08/27/2024 2:33 PM EST 08/27/2024 Narrative [facility] 1 - 08/28/2024 7:06 AM EST Performed at: 01 - [facility] [address] [id number] Tooling Engineering Tech: Rachel Blevins MD, Phone: [phone] Everett Degroot MD LAB BLOOD ORDERABLES F inal Result [facility] 1 from Last 3 Months or Most Recently Relevant to Health Maintenance Insurance MEDICARE [facility] Care Teams Company Doctor Relationship Specialty Start Date End Date Nader Rodgers MD [address] PCP - General Internal Medicine 05/27/21
--- OUTSIDE RECORDS SUMMARY | 2025-05-20 11:05 | XMS_ITS | Encounter Summary ---
Author Organization [facility] Address [address] [place] [address] Care Team Providers Care Arabic Linguist Name Role Phone Nader Rodgers MD Primary Care Provider [phone] Everett Degroot MD Unavailable Unava ilable Juan Rice MD Unavailable [phone] Maxwell Leonardo MD Unavailable Unavailable Laura Delaney APRN Unavailable [phone] Encounter Details Date Type Department Care Team (Late st Contact Info) Description 03/21/2019 Scanned Document [facility] [place] at [address] [address] Cardiology, Scan Social History Tobacco Use Types Packs/Day Years Used Date Smoking Tobacco: Never Assessed Comments Unknown Sex and Gender Information Value Date Recorded Sex Assigned at Not on file Legal Sex Female 3:56 PM EDT Gender Identity Not on file Sexual Orientation Not on file documented as of this encounter Plan of Treatment Not on file documented as of this encounter Visit Diagnoses Not on filedocumented in this encounter Care Teams Arabic Linguist Relationship Specialty Start Date End Date Nader Rodgers MD 222 [place] [address] PCP - General 12/27/19 Everett Degroot MD [address] [place] [address] Foot Miter Operator Cardiovascular Disease 12/27/19 Juan Rcie MD [address] [place] [address] Surgery, Orthopedic 02/12/20 Maxwell Leonardo MD [address] [place] [address] Referring Provider Gastroenterology 02/12/20 Laura Delaney APRN [facility] [place] [address] Advanced Practitioner Sleep Medicine 02/12/20 documented as of this encounter
--- OUTSIDE RECORDS SUMMARY | 2025-05-20 11:05 | XMS_ITS | Encounter Summary ---
Author Organization [facility] Address [address] [place] [address] Care Team Providers Care Coremaker Machine Name Role Phone Nader Rodgers MD Primary Care Provider [phone] Everett Degroot MD Unavailable Unava ilable Juan Rice MD Unavailable [phone] Maxwell Leonardo MD Unavailable Unavailable Laura Delaney APRN Unavailable [phone] Encounter Details Date Type Department Care Team (Late st Contact Info) Description 02/19/2019 Scanned Document [facility] [place] at [address] [address] Cardiology, Scan Social History Tobacco [...] Procedure Name Priority Date/Time Associated Diagnosis Comments ECG 12-LEAD 02/19/2019 documented in this encounter Results * ECG 12-LEAD (02/19/2019) us Scan Cardiology ECG ORDERABLES Final Result documented in this encounter Visit Diagnoses Not on filedocumented in this encounter Care Teams Coremaker Machine Relationship Specialty Start Date End Date Nader Rodgers MD [address] [place] [address] PCP - General 12/27/19 Everett Degroot MD [address] [place] [address] Motor Vehicle Parts Interpreter Cardiovascular Disease 12/27/19 Juan Rice MD [address] [place] [address] Surgery, Orthopedic 02/12/20 Maxwell Leonardo MD [address] [place] [address] Referring Provider Gastroenterology 02/12/20 Laura Delaney APRN [address] [place] [address] Advanced Practitioner Sleep Medicine 02/12/20 documented as of this encounter
--- OUTSIDE RECORDS SUMMARY | 2025-05-20 11:05 | XMS_ITS | Encounter Summary ---
Author Organization [facility] Address [address] [place] [address] Care Team Providers Care Entry Level Financial Analyst Name Role Phone Nader Rodgers MD Primary Care Provider [phone] Everett Degroot MD Unavailable Unava ilable Juan Rice MD Unavailable [phone] Maxwell Leonardo MD Unavailable Unavailable Laura Delaney APRN Unavailable [phone] Encounter Details Date Type Department Care Team (Late st Contact Info) Description 12/31/2019 Scanned Document [facility] [place] at [address] [address] Provider, Generic Social History Tobacco [...] Procedure Name Priority Date/Time Associated Diagnosis Comments BOOKING SHEETS-SCAN 12/31/2019 documented in this encounter Results * BOOKING SHEETS-SCAN (12/31/2019) Narrative 12/31/2019 Ordered by an unspecified provider. us Generic Provider HX AMB PROCEDURES Final Result documented in this encounter Visit Diagnoses Not on filedocumented in this encounter Care Teams Entry Level Financial Analyst Relationship Specialty Start Date End Date Nader Rodgers MD 222 [place] [address] PCP - General 12/27/19 Everett Degroot MD 222 [place] [address] Mophead Trimmer And Wrapper Cardiovascular Disease 12/27/19 Juan Rice MD [address] [place] [address] Surgery, Orthopedic 02/12/20 Maxwell Leonardo MD [address] [place] [address] Referring Provider Gastroenterology 02/12/20 Laura Delaney APRN [address] [place] [address] Advanced Practitioner Sleep Medicine 02/12/20 documented as of this encounter
--- OUTSIDE RECORDS SUMMARY | 2025-05-20 11:05 | XMS_ITS | Clinical Summary ---
Author Organization [facility] Address [address] [place] [address] Care Team Providers Care Agricultural Chemicals Inspector Name Role Phone Nader Rodgers MD Primary Care Provider [phone] Everett Degroot MD Unavailable Unava ilable Juan Rice MD Unavailable [phone] Maxwell Leonardo MD Unavailable Unavailable Laura Delaney APRN Unavailable [phone] Allergies Active Allergy Reactions Criticality Noted Date Comments Ciprofloxacin Hives,Rash/Dermatitis Medium 02/12/2020 Nickel Rash/Dermatitis Low 02/06/2020 Sulfa Antibiotics Rash/Dermatitis Low 02/12/2020 Medications diltiazem (dilTIAZem CD) 240 MG 24 hr capsule Take 240 mg by mouth every morning. Take morning of surgery Active isosorbide dinitrate (ISORDIL) 30 MG tablet Take 30 mg by mouth every morning. Take morning of surgery Active PANTOprazole (PROTONIX) 40 MG EC tablet Take 40 mg by mouth every morning. Take morning of surgery Active ascorbic acid (VITAMIN C) 500 MG tablet Take 500 mg by mouth every morning. Last day to take is 03-02-20 - stop 1 week prior to surgery Active Vitamin D3 (CHOLECALICEROL) 50 MCG (1999) tablet Take 2,000 Units by mouth every morning. Last day to take is 03-02-20 - stop 1 week prior to surgery Active Calcium-Magnesium- Vitamin D ER (Citracal Slow Release) 600-40-500 MG-MG-UNIT Tablet SR 24 hr Take by mouth every morning. Last day to take is 6-21-20 - stop 1 week prior to surgery Active Cisco-3 Fatty Acids (FISH OIL) 1200 MG Cap Take by mouth every morning. Last day to take is 20 - stop 1 week prior to surgery Active meloxicam (MOBIC) 7.5 MG tablet Take 7.5 mg by mouth every morning. Last day to take is 03-02-20 - stop 1 week prior to surgery Active glucosamine chondroitin complex (OSTEO BI-FLEX) Tab tablet Take by mouth every morning. Last day to take is 20 - stop 1 week prior to surgery Active Probiotic Product ([employer] ADV PROBIOTIC GUMMIES PO) Take by mouth every morning. Last day to take is 20 - stop 1 week prior to surgery Active diclofenac (VOLTAREN) 1 % gel Apply 4 g topically 4 (four) times a day. Use dosing card to measure dose. Apply to entire affect area. Last day to take is 03-02-20 - stop 1 week prior to surgery Active aspirin enteric coated (ECOTRIN LOW STRENGTH) 81 MG EC tabletIndications: Primary osteoarthritis of right knee Take 1 tablet (81 mg total) by mouth every 12 (twelve) hours around the clock. 0 Active acetaminophen (TYLENOL) 325 MG tabletIndications: Primary osteoarthritis of right knee Take 3 tablets (975 mg total) by mouth every 4 (four) hours as needed for mild pain. 270 tablet 0 Active docusate sodium 100 MG CapIndications:Jeanette katy osteoarthritis of right knee Take 100 mg by mouth 2 (two) times a day. 0 Active senna-docusate (SENNA-S) 8.6-50 MGIndications:Prim madhavi osteoarthritis of right knee Take 2 tablets by mouth nightly. 60 tablet 0 Active methocarbamol (ROBAXIN) 750 MG tabletIndications: Primary osteoarthritis of right knee Take 1 tablet (750 mg total) by mouth 4 (four) times a day as needed for muscle spasms. 120 tablet 0 Active HYDROmorphone (DILAUDID) 2 MG tabletIndications: Primary osteoarthritis of right knee Take 1-2 tablets (2-4 mg total) by mouth every 3 (three) hours as needed for moderate pain or severe pain. Max Daily Amount: 32 mg 30 tablet 0 Active Active Problems Problem Noted Date Diagnosed Date Osteoarthritis of right knee 03/10/2020 Family History Medical History Relation Name Comments Esophageal cancer Father Heart disease Father Hypertension Father Breast cancer Mother Breast cancer Sister 1 Hypertension Sister 1 Aneurysm Sister 2 ADD / ADHD Son 1 Hypertension Son 1 Asthma Son 2 Relation Name Status Comments Brother half Alive Father Mother Sister 1 (Age 48) Sister 2 Alive Son 1 Alive Son 2 Alive Social History Tobacco Use Types Packs/Day Years Used Date Smoking Tobacco: Never Smokeless Tobacco: Never Alcohol Use Standard Drinks/Week Comments Not Currently 0 (1 standard drink = 0.6 oz pur e alcohol) nothing in past month Comments Unknown Sex and Gender Information Value Date Recorded Sex Assigned at Not on file Legal Sex Female 3:56 PM EDT Gender Identity Not on file Sexual Orientation Not on file Last Filed Vital Signs Vital Sign Reading Time Taken Comments Blood Pressure 138/68 03/11/2020 9:31 AM EDT Pulse 62 03/11/2020 9:31 AM EDT Temperature 36.1 C (97 F) 03/11/2020 9:31 AM EDT Respiratory Rate 16 03/11/2020 9:31 AM EDT Oxygen Saturation 98% 03/11/2020 9:31 AM EDT Inhaled Oxygen Concentration - - Weight 79.8 kg (176 lb) 03/10/2020 5:46 AM EDT Height 170.2 cm (5' 7 ) 03/10/2020 5:46 AM EDT Body Mass Index 27.57 03/10/2020 5:46 AM EDT Plan of Treatment Health Maintenance Due Date Last Done Comments Advance Care Planning 1950 Hepatitis C Virus Screening 1950 DTaP/Tdap/Td Vaccines (1 - Tdap) 1971 Mammogram 1992 Colonoscopy 1997 Pneumococcal Vaccines 50+ (1 of 1 - PCV) 2002 Zoster (Shingles) Vaccine (1 of 2) 2002 DXA Bone Density (Females,Ag es 65 and older) 2017 COVID-19 Vaccine (1 - 2023-2 5 season) 2024 Influenza Vaccine 04/12/2025 RSV Vaccine 60 years and old er and Patients (1 - 1-dose 75+ series) 2027 Hepatitis B Vaccines Aged Out No long er eligible based on patient's age to complete this topic Medical Devices Implanted Type Area Pharmaceutical Representative Device Identifier Shelf Expiration Date Model / Serial / Lot 6191-1-001 Cement Bone Smpx P Radiopaque Fd Sterl - [id number] Implanted:Qty: 2 on 03/10/2020 by Juan Rice MD at [facility] Cement Right: Knee [employer] - DIV STRYKE 11/09/2021 6191-1-001 / / [id number] Component Femoral E Knee Right Cement Lpsflx Nxgn Tiv Sterl - [id number] Implanted:Qty: 1 on 03/10/2020 by Juan Rice MD at [facility] Joint Prosthesis Right: Knee [employer] [id number] 08/11/2029 [id number] / / [id number] Baseplate Tibial Nxgn 4 Knee Stem Prect - [id number] Implanted:Qty: 1 on 03/10/2020 by Juan Rice MD at [facility] Joint Prosthesis Right: Knee [employer] [id number] 11/09/2029 [id number] / / [id number] Surface Articular 10mm Lpsflx 3-4 E-F Knee Fix Net Mold - [id number] Implanted:Qty: 1 on 03/10/2020 by Juan Rice MD at [facility] Joint Prosthesis Right: Knee [employer] [id number] 03/11/2028 [id number] / / [id number] Component Patellar Std 8.5mm 32mm Nxgn Uhmwpe Knee Sterl - [id number] Implanted:Qty: 1 on 03/10/2020 by Juan Rice MD at [facility] Joint Prosthesis Right: Knee [employer] [id number] 12/11/2027 [id number] / / [id number] Insurance MEDICARE PART A & B [facility] Advance Directives * Full Code (Latest Code Status on File) Date Activated Date Inactivated Comments 03/10/2020 12:17 PM * Full Code Date Activated Date Inactivated Comments 03/10/2020 5:44 AM 03/10/2020 12:17 PM Care Teams Agricultural Chemicals Inspector Relationship Specialty Start Date End Date Nader Rodgers MD [address] [place] [address] PCP - General 12/27/19 Everett Degroot MD [address] [place] [address] Livestock Exhibitor Cardiovascular Disease 12/27/19 Juan Rice MD [address] [place] [address] Surgery, Orthopedic 02/12/20 Maxwell Leonardo MD [address] [place] [address] Referring Provider Gastroenterology 02/12/20 Laura Delaney APRN [address] [place] [address] Advanced Practitioner Sleep Medicine 02/12/20
--- OUTSIDE RECORDS SUMMARY | 2025-05-20 11:05 | XMS_ITS | Encounter Summary ---
Author Organization [facility] Address [address] [place] [address] Care Team Providers Care Manager Target Name Role Phone Nader Rodgers MD Primary Care Provider [phone] Everett Degroot MD Unavailable Unava ilable Juan Rice MD Unavailable [phone] Maxwell Leonardo MD Unavailable Unavailable Laura Delaney APRN Unavailable [phone] Encounter Details Date Type Department Care Team (Late st Contact Info) Description 12/31/2019 Scanned Document [facility] [place] at [address] [address] Provider, Generic Social History Tobacco [...] on filedocumented in this encounter Care Teams Manager Target Relationship Specialty Start Date End Date Nader Rodgers MD 222 [place] [address] PCP - General 12/27/19 Everett Degroot MD [address] [place] [address] Pelletizer Tender Cardiovascular Disease 12/27/19 Juan Rice MD [address] [place] [address] Surgery, Orthopedic 02/12/20 Maxwell Leonardo MD [address] [place] [address] Referring Provider Gastroenterology 02/12/20 Laura Delaney APRN [address] [place] [address] Advanced Practitioner Sleep Medicine 02/12/20 documented as of this encounter
--- OUTSIDE RECORDS SUMMARY | 2025-05-20 11:05 | XMS_ITS | Encounter Summary ---
Author Organization [facility] Address [address] [place] [address] Care Team Providers Care Water Supervisor Name Role Phone Nader Rodgers MD Primary Care Provider [phone] Encounter Details Date Type Department Care Team (Late st Contact Info) Description 04/19/[address] [facility] [address] [facility] [place] [phone] Clemente Weems, BRAYDEN [address] [place], [place] [id number] Urinary tract infection, site not specified Social History Tobacco Use Types Packs/Day Years [...] as of this encounter Plan of Treatment Upcoming Encounters Date Type Department Care Team (Late st Contact Info) Description 06/26/2025 10:50 AM EDT Office Visit [facility] [address] [place] [phone] Everett Degroot MD [address] [place] [address] Dr Mejia [address] [place] [phone] 03/18/2026 8:00 AM EDT Office Visit Gastroenterology - [address] [facility] [address] [place] [address] Mayte Brown PA [address] [place] [address] documented as of this encounter Procedures Procedure Name Priority Date/Time Associated Diagnosis Comments CULTURE URINE Routine 04/19/2025 5:33 PM EDT Urinary tract infection, site not specified documented in this encounter Results * (ABNORMAL) Culture urine (04/19/2025 5:33 PM EDT) Culture, Urine >=100,000 CFU/mL Pseudomonas aeruginosa(A) STEPHANE 04/21/2025 8:38 AM EDT [facility] Urine Urine specimen obtained by clean catch procedure / Unknown Non-blood Collection / Unknown 04/19/2025 5:33 PM EDT 04/19/2025 5:34 PM EDT Narrative Organism Antibiotic Method Susceptibility Pseudomonas aeruginosa Piperacillin/Tazobactam STEPHANE 8 ug/ml: Susceptible Pseudomonas aeruginosa Ceftazidime STEPHANE 2 ug/ml: Susceptible Pseudomonas aeruginosa Cefepime STEPHANE 2 ug/ml: Susceptible Pseudomonas aeruginosa Meropenem STEPHANE <=0.25 ug/ml: Susceptible Pseudomonas aeruginosa Amikacin STEPHANE 4 ug/ml: Susceptible Pseudomonas aeruginosa Ciprofloxacin STEPHANE 0.25 ug/ml: Susceptible Pseudomonas aeruginosa Levofloxacin STEPHANE 1 ug/ml: Susceptible [facility] Faustina OWEN LAB MICROBIOLOGY - GENERAL ORDE RABTOVA Final Result [facility] [address] [place] [address], documented in this encounter Visit Diagnoses Diagnosis Urinary tract infection, site not specified documented in this encounter Care Teams Water Supervisor Relationship Specialty Start Date End Date Nader Rodgers MD 222 [facility] [address] [place], [place] PCP - General Internal Medicine 05/27/21 documented as of this encounter
== END 2025-05-20 10:22 | disposition home or self-care (01) ==
LOC: HO.HMGAL 09:42
PROVIDERS: PCP Internal Medicine; Visit Provider Registered Nurse Emergency
DX: J30.89 Other allergic rhinitis (principal)
CPT/HCPCS: 95117; 95165

== ENCOUNTER 2025-06-26 09:23 | Outpatient (AMB) | payer MEDICARE, SELFPAY ==
--- OUTSIDE RECORDS SUMMARY | 2025-06-26 10:32 | XMS_ITS | Encounter Summary ---
Author Organization [facility] Address [address] [place] [address] Care Team Providers Care Shoe Lay Out Planner Name Role Phone Nader Rodgers MD Primary Care Provider [phone] Everett Degroot MD Unavailable Unava ilable Juan Rice MD Unavailable [phone] Maxwell Leonardo MD Unavailable Unavailable Laura Delaney APRN Unavailable [phone] Encounter Details Date Type Department Care Team (Late st Contact Info) Description 02/19/2019 Scanned Document [facility] [place] at [address] [address] Cardiology, Scan Social History Tobacco [...] on filedocumented in this encounter Care Teams Shoe Lay Out Planner Relationship Specialty Start Date End Date Nader Rodgers MD [address] [place] [address] PCP - General 12/27/19 Everett Degroot MD [address] [place] [address] Questioned Documents Examiner Cardiovascular Disease 12/27/19 Juan Rice MD [address] [place] [address] Surgery, Orthopedic 02/12/20 Maxwell Leonardo MD [address] [place] [address] Referring Provider Gastroenterology 02/12/20 Laura Delaney APRN [address] [place] [address] Advanced Practitioner Sleep Medicine 02/12/20 documented as of this encounter
--- OUTSIDE RECORDS SUMMARY | 2025-06-26 10:32 | XMS_ITS | Encounter Summary ---
Author Organization [facility] Address [address] [place] [address] Care Team Providers Care Band Tier Name Role Phone Nader Rodgers MD Primary Care Provider [phone] Everett Degroot MD Unavailable Unava ilable Juan Rice MD Unavailable [phone] Maxwell Leonardo MD Unavailable Unavailable Laura Delaney APRN Unavailable [phone] Encounter Details Date Type Department Care Team (Late st Contact Info) Description 03/21/2019 Scanned Document [facility] [place] at [address] [address] Cardiology, Scan Social History Tobacco [...] on filedocumented in this encounter Care Teams Band Tier Relationship Specialty Start Date End Date Nader Rodgers MD [address] [place] [address] PCP - General 12/27/19 Everett Degroot MD [address] [place] [address] Flooring Sales Manager Cardiovascular Disease 12/27/19 Juan Rice MD [address] [place] [address] Surgery, Orthopedic 02/12/20 Maxwell Leonardo MD [address] [place] [address] Referring Provider Gastroenterology 02/12/20 Laura Delaney APRN [facility] [place] [address] Advanced Practitioner Sleep Medicine 02/12/20 documented as of this encounter
--- OUTSIDE RECORDS SUMMARY | 2025-06-26 10:32 | XMS_ITS | Encounter Summary ---
Author Organization [facility] Address [address] [place] [address] Care Team Providers Care Slitter Creaser Slotter Helper Name Role Phone Nader Rodgers MD Primary Care Provider [phone] Encounter Details Date Type Department Care Team (Late st Contact Info) Description 04/19/2025 Lab Requisition [facility] Main Lab [address] [facility] [place] [phone] Clemente Weems, BRAYDEN [address] [place] [address] Urinary tract infection, site not specified Social [...] Description 06/26/2025 10:50 AM EDT Office Visit [facility] [address] [place] [phone] Everett Degroot MD [address] [place] [address] Dr Mejia [address] [place] [phone] 03/18/2026 8:00 AM EDT Office Visit Gastroenterology - [address] [facility] [address] [place] [address] Mayte Brown PA [address] [place] [address] documented as of this encounter Procedures Procedure Name Priority Date/Time Associated Diagnosis Comments CULTURE URINE Routine 04/19/2025 5:33 PM EDT Urinary tract infection, site not specified documented in this encounter Results * (ABNORMAL) Culture urine (04/19/2025 5:33 PM EDT) Culture, Urine >=100,000 CFU/mL Pseudomonas aeruginosa(A) STEPHANE 04/21/2025 8:38 AM EDT [facility] Urine Urine specimen obtained by clean [...] Pseudomonas aeruginosa Levofloxacin STEPHANE 1 ug/ml: Susceptible [facility] Faustina OWEN LAB MICROBIOLOGY - GENERAL ORDE RABTOVA Final Result [facility] [address] [place] [address], documented in this encounter Visit Diagnoses Diagnosis Urinary tract infection, site not specified documented in this encounter Care Teams Slitter Creaser Slotter Helper Relationship Specialty Start Date End Date Nader Rodgers MD [address] [facility] [address] [place], [place] PCP - General Internal Medicine 05/27/21 documented as of this encounter
--- OUTSIDE RECORDS SUMMARY | 2025-06-26 10:32 | XMS_ITS | Encounter Summary ---
Author Organization [employer] Address [address] [place] [address] Care Team Providers Care Core Measures Abstractor Name Role Phone Nader Rodgers MD Primary Care Provider [phone] Reason for Visit * Reason Onset Date Comments Blood Work 06/25/2025 Encounter Details Date Type Department Care Team (Late st Contact Info) Description 06/25/2025 Telephone [facility] [place] [address] [place] [phone] Everett Degroot MD [address] [place] [address] [address] [place] [address] Social History Tobacco Use Types Packs/Day Years [...] on file documented as of this encounter Functional Status * Are you deaf or do you have serious difficulty hearing? Answer Date of Assessment Author No 04/23/2025 12:16 PM Micahel Almeida RN * Are you blind or do you have serious difficulty seeing, even when wearing glasses? Answer Date of Assessment Author No 04/23/2025 12:16 PM Michael Almeida RN * Do you have serious difficulty walking or climbing stairs? Answer Date of Assessment Author No 04/23/2025 12:16 PM EDT Michael Younger RN * Do you have serious difficulty dressing or bathing? Answer Date of Assessment Author No 04/23/2025 12:16 PM EDT Michael Younger RN * Because of a physical, mental, or emotional condition, do you have serious difficulty doing errandsalone such as visiting the doctor? Answer Date of Assessment Author No 04/23/2025 12:16 PM EDT Michael Younger RN documented as of this encounter Mental Status * Because of a physical, mental, or emotional condition, do you have serious difficulty concentrating, remembering, or making decisions? (5 years old or older) Answer Entry Date Author No 04/23/2025 12:16 PM EDT Michael Younger RN documented in this encounter Progress Notes * Everett Degroot MD - 06/25/2025 3:46 PM EDT Labs ordered by PCP. Will review further at next office visit with me. * Amy Jolly RN - 06/25/2025 3:28 PM EDT I spoke to Aisha and she is referring to the labs she had drawn 05/06/25 that are available in the[employer] [facility]. FYI as the pt is seeing you tomorrow * Nicole Torres - 06/25/2025 3:04 PM EDT Patient called and wanted to give an FYI that she had her labs done, and they faxed the results over for her appointment tomorrow, 06/[address] Jones. documented in this encounter Plan of Treatment Upcoming Encounters Date Type Department Care Team (Late st Contact Info) Description 06/26/2025 10:50 AM EDT Office Visit [facility] [address] [place] [address] Everett Degroot MD [address] [place] [address] Dr [address] [place] [phone] 03/18/2026 8:00 AM EDT Office Visit Gastroenterology - [address] [place] [address] Mayte Brown PA [address] [place] [phone] documented as of this encounter Visit Diagnoses Not on filedocumented in this encounter Care Teams Core Measures Abstractor Relationship Specialty Start Date End Date Nader Rodgers MD [address] [place], [place] PCP - General Internal Medicine 05/27/21 documented as of this encounter
--- OUTSIDE RECORDS SUMMARY | 2025-06-26 10:33 | XMS_ITS | Data Portability ---
Author Organization [facility], [address] Address [address] [place] [address] Care Team Providers Care Fireperson Name Role Phone ROMELIA DISLA Primary Care Provider Assessment No assessment recorded. Plan of Treatment Reminders Order Date Submit Date Provider Last Modified By Organization Details Last Modified Time Details Appointments None recorded. Lab rapid flu (A+B) [email or web address] [facility], [address] [place] [address], [place], [phone], 3 15:18:51 Referral None recorded. Procedures None recorded. Surgeries None recorded. Imaging XR, chest, 2 view - Right side chest - significant wheezing and rhonchi. Sick x 1 month. OTC medications not helping. No fever. COVID and Influenza Negative. 2022 023 [email or web address] [facility], [address] [place] [address], [address], 3 15:25:52 Medication Orders amoxicillin 875 mg-potassiu m clavulanate 125 mg tablet 2022 023 [id number], [address] [facility], [place], [address], 3 15:25:28 albuterol sulfate 2.5 mg/3 mL (0.083 %) solution for nebulizatio n 2022 023 [email or web address] Not available 3 15:18:51 ipratropium bromide 0.02 % solution for inhalation 2022 023 [email or web address] Not available 3 15:18:51 albuterol sulfate HFA 90 mcg/actuati on aerosol inhaler 2022 023 [facility], [address] [place] [address], [address], 3 15:25:29 loratadine 10 mg tablet 2022 023 [id number], [address] [place], [address], 3 15:25:27 benzonatate 100 mg capsule 2022 023 [facility], [address] [place], [address], 3 15:25:29 Patient TargetsNo targets recorded. Patient Instructions Encounter Date Encounter Id Patient Instructions Last Modified By Organization Details Last Modified Time 10/16/2022 [id number] sinusitis [email or web address] Not available 10/16 15:25:25 Acute bronchitis is a common clinical condition characterized by an acute onset but persistent cough, with or without sputum production. It is typically self-limited, resolving within one to three weeks. Symptoms result from inflammation of the lower respiratory tract and are most frequently due to viral infection. Treatment is focused on patient education and supportive care. Antibiotics are not needed for the great majority of patients with acute bronchitis but are greatly overused for this condition. Reducing antibiotic use for acute bronchitis is a national and international health care priority. In most patients, the cough persists for 1 to 3 weeks, with a average duration of 18 days. The cough may be associated with either purulent or nonpurulent sputum production The presence of purulent sputum is a nonspecific finding and does not appear to be predictive of bacterial infection or that antibiotics are needed. For the great majority of patients, use of antibiotics does not hasten recovery or prevent complications but puts patients at increased risk of adverse effects including potentially severe complications such as Clostridioides difficile infection and anaphylaxis. Non-Pharmacological treatment for coughin. Throat lozenges 2. Hot tea 3. Honey 4. Smoking cessation 5. Avoidance of secondhand smoke. Pharmacological Treatment: 1. Robatussin or Guafenasin 2. Antihistamines 3. Dextromethoraphen I would plan on being seen again if any of the following symptoms develop: 1. Fever (100.5) 2. Shortness of breath 3. Wheezing 4. Worsening Cough. I would go to the ER if you develop: 1. Severe Shortness of breath 2. Chest Pain 3. Wheezing 4. Coughing up Blood [email or web address] Not available 10/16/2022 15:25:23 Reason for Referral None Reported. Results Created Date Observation Date Name Description Value Unit Range Abnormal Flag Note LastModifiedBy Organization Detail LastModifiedTime 10/16/1910/16/2022 rapid flu (A+B) Unknown Analyte Normal = Negati ve Not Available [address], [address], 10/16/2022 14:36:40 10/16/19 23 10/16/2022 rapid flu (A+B) Unknown Analyte negati ve Not Available [address] [place] [address], [phone], 10/16/2022 14:36:40 10/16/19 23 10/16/2022 rapid flu (A+B) Unknown Analyte Normal = Negati ve Not Available [address], [address], 10/16/2022 14:36:40 10/16/19 23 10/16/2022 rapid flu (A+B) Unknown Analyte negati ve Not Available [address] [place] [address], [phone], 10/16/2022 14:36:40 10/16/19 23 10/16/2022 XR, chest , 2 view No observ ation record ed. [email or web address] [facility] [address] [place], [address], 10/16/2022 17:28:45 Result Notes None recorded. Procedures Surgical History Date Name Laterality Status Provider Name and Address Organization Details Recorded Time Nebulizer Treatment completed Juliet Rolon PA - [facility] 10/16/2022 15:19:04 0 total knee replacement completed KAMLA CORREA PA - [facility] 10/16/2022 13:55:17 Imaging Results None recorded. Procedure Notes None recorded. Medical Equipment None Reported. Allergies Allergen ID Allergen Name Allergen Category Reaction Reaction Severity Criticality Documentation Date Start Date Code Code System Note Provider Name and Address Organization Details Recorded Time 921815 Cipro medicatio n Not available Not available Not available 10/16/2022 98330 3 RxNorm KAMLA MADELINE null, PA - [facility] 13:50:29 [id number] Substance with sulfonami de structure and antibacte rial mechanism of action (substanc e) medicatio n Not available Not available Not available 10/16/2022 76824 8003 SNOMED KAMLA MADELINE null, PA - [facility] 13:50:35 677925 latex environme nt,medica tion Not available Not available Not available 10/16/2022 05561 91 RxNorm KAMLA MADELINE null, PA - [facility] 13:50:41 [id number] nickel environme nt Not available Not available Not available 10/16/2022 48016 29 RxNorm KAMLA MADELINE null, PA - [facility] 13:50:46 Medications Name Sig Start Date Stop Date Status Note LastModified by Organization Details LastModified Time amoxicillin 500 mg capsule TAKE 4 CAPSULES BY MOUTH 1 HOUR BEFORE DENTAL APPOINTME NT 10/16 completed Not Available Not Available Not Available albuterol sulfate 2.5 mg/3 mL (0.083 %) solution for nebulizatio n Inhale 3 mL by nebulizat ion route. 2022 active Not Available Not Available Not Avai lable azithromyci n 250 mg tablet TAKE 2 TABLETS BY MOUTH TODAY, THEN TAKE 1 TABLET DAILY FOR 4 DAYS 10/16 completed Not Available Not Available Not Available cefpodoxime 100 mg tablet TAKE 2 TABLETS BY MOUTH EVERY 12 HOURS FOR 5 DAYS. 10/16 completed Not Available Not Available Not Available valacyclovi r 1 gram tablet TAKE TWO PILLS (2 GM) EVERY 12 HOURS AT THE ONSET OF SYMPTOMS X1 DAY. 10/16 completed Not Available Not Available Not Available prednisone 20 mg tablet TAKE 2 TABS BY MOUTH ONCE DAILY X4 DAYS, THEN 1 TAB DAILY X4 DAYS active Not Available Not Available No t Available isosorbide mononitrate ER 30 mg tablet,exte nded release 24 hr active Not Available Not Available Not Available metronidazo le 500 mg tablet TAKE 1 TABLET BY MOUTH TWICE A DAY FOR 7 DAYS 10/16 completed Not Available Not Available Not Available valacyclovi r 500 mg tablet TAKE 1 TABLET TWICE A DAY FOR 3 DAYS FOR OUTBREAK NEEDED 10/16 completed Not Available Not Available Not Available benzonatate 100 mg capsule Take 1 capsule 3 times a day by oral route. 2022 active Not Available Not Available Not Avai lable pantoprazol e 40 mg tablet,talya yed release active Not Available Not Available Not Available nitrofurant oin macrocrysta l 100 mg capsule TAKE ONE CAPSULE BY MOUTH EVERY DAY FOR 7 DAYS 10/16 completed Not Available Not Available Not Available clotrimazol e-betametha sone 1 %-0.05 % topical cream PLEASE SEE ATTACHED FOR DETAILED DIRECTION S 10/16 completed Not Available Not Available Not Available gabapentin 300 mg capsule 10/16 completed Not Available Not Available Not Available methylpredn isolone 4 mg tablets in a dose pack TAKE 6 TABLETS ON DAY 1 DIRECTED ON PACKAGE AND DECREASE BY 1 TAB EACH DAY FOR A TOTAL OF 6 DAYS 10/16 completed Not Available Not Available Not Available albuterol sulfate HFA 90 mcg/actuati on aerosol inhaler INHALE 2 PUFFS EVERY 4 HOURS BY INHALATIO N ROUTE. active Not Available Not Available No t Available loratadine 10 mg tablet TAKE 1 TABLET BY MOUTH EVERY DAY active Not Available Not Available No t Available ipratropium bromide 0.02 % solution for inhalation Inhale 2.5 mL by inhalatio n route. 2022 active Not Available Not Available Not Avai lable amoxicillin 875 mg-amandeep mejia clavulanate 125 mg tablet Take 1 tablet twice a day by oral route for 7 days. 2022 active Not Available Not Available Not Avai lable olmesartan 20 mg tablet active Not Available Not Available Not Available rosuvastati n 5 mg tablet active Not Available Not Available Not Available DILT-XR 240 mg capsule, extended release Take 1 capsule every day by oral route. active Not Available Not Available No t Available Vitamin C active Not Available Not Sade ilable Not Available aspirin active Not Available Not Avail able Not Available Fish Oil active Not Available Not Avai lable Not Available Vitamin D3 active Not Available Not Av ailable Not Available GaviLyte-G 236 gram-22.74 gram-6.74 gram-5.86 gram oral solution 10/16 completed Not Available Not Available Not Available Vitals None Recorded Social History Question Answer Notes LastModified by [employer] Details LastModified Time Tobacco Smoking Status Never Smoker BRAYDEN Vargas - [facility] 10/16/2022 13:54:35 Have You Recently Traveled Abroad? No Information not available 10/16/2022 Sex: Unknown Functional Status Question Answer Note LastModified by [employer] Details LastModified Time Do you use any illicit or recreational drugs? No Information not available 10/16/2022 Do you or have you ever used any other forms of tobacco or nicotine? No Information not available 10/16/2022 What is your level of alcohol consumption? Occasional Information not available 10/16/2022 Are you currently employed? No Information not available 10/16/2022 Mental Status None recorded. Family History Relationship Description Onset Age of this Age Resolved Age Notes LastModified by Organization Details LastModified Time Father No current problems or disability Not available 10/16 13:54:16 Mother No current problems or disability Not available 10/16 13:54:16 Medical History No medical history recorded. Gynecological HistoryNo gynecological history recorded. Obstetrics History GPAL:G 0 P 0 0 0 0 Immunizations Vaccine Type Date Status Note Provider Nam e and Address Organization Details Recorded Time Influenza, MDCK, quadrivalent, PF 7 completed KAMLA MADELINE null, PA - [facility] 10/16/2022 13:49:48 Influenza, high-dose, quadrivalent, PF 1 completed KAMLA MADELINE null, PA - [facility] 10/16/2022 13:49:48 Influenza, adjuvanted, quadrivalent, PF 0 completed KAMLA MADELINE null, PA - [facility] 10/16/2022 13:49:48 Influenza, adjuvanted, quadrivalent, PF 2 completed KAMLA MADELINE null, PA - [facility] 10/16/2022 13:49:48 COVID-19, mRNA, LNP-S, PF, 100 mcg/0.5mL dose or 50 mcg/0.25mL dose 1 completed KAMLA MADELINE null, PA - [facility] 10/16/2022 13:49:48 COVID-19, mRNA, LNP-S, PF, 100 mcg/0.5mL dose or 50 mcg/0.25mL dose 1 completed KAMLA MADELINE null, PA - [facility] 10/16/2022 13:49:48 COVID-19, mRNA, LNP-S, PF, 100 mcg/0.5mL dose or 50 mcg/0.25mL dose 2 completed KAMLA MADELINE null, PA - [facility] 10/16/2022 13:49:48 COVID-19, mRNA, LNP-S, PF, 100 mcg/0.5mL dose or 50 mcg/0.25mL dose 1 completed KAMLA MADELINE null, PA - [facility] 10/16/2022 13:49:48 COVID-19, mRNA, LNP-S, bivalent, PF, 50 mcg/0.5 mL or 25mcg/0.25 mL dose 2 completed KAMLA MADELINE null, PA - [facility] 10/16/2022 13:49:48 pneumococcal polysaccharide PPV23 3 completed KAMLA MADELINE null, PA - [facility] 10/16/2022 13:49:48 Tdap 3 completed KAMLA MADELINE null, PA - [facility] 10/16/2022 13:49:48 zoster live 3 completed KAMLA MADELINE null, PA - [facility] 10/16/2022 13:49:48 Influenza, high-dose, trivalent, PF 8 completed KAMLA MADELINE null, PA - [facility] 10/16/2022 13:49:48 Influenza, high-dose, trivalent, PF 9 completed KAMLA MADELINE null, PA - [facility] 10/16/2022 13:49:48 Influenza, split virus, trivalent, preservative 3 completed KAMLA MADELINE null, PA - [facility] 10/16/2022 13:49:48 Influenza, split virus, trivalent, preservative 4 completed KAMLA MADELINE null, PA - [facility] 10/16/2022 13:49:48 Influenza, split virus, trivalent, PF 5 completed KAMLA MADELINE null, PA - [facility] 10/16/2022 13:49:48 Influenza, split virus, trivalent, PF 6 completed KAMLA MADELINE null, PA - [facility] 10/16/2022 13:49:48 Past Encounters Encounter ID Performer Location Encounter Start Date Encounter Closed Date Diagnosis/Indication Diagnosis SNOMED-CT Code Diagnosis ICD10 Code Diagnosis IMO Codes Diagnosis Note [id number] [address] [facility] [address] [place] [address] 09/14/2019 12:01:26 09/14/2019 13:37:11 [id number] [address] [facility] [address] [place] [address] 11/05/2017 12:56:16 11/05/2017 13:39:11 [id number] [address] [place] [address] 10/12/2019 12:08:42 10/12/2019 14:00:06 [id number] [address] [place] [address] 03/29/2018 12:15:12 03/29/2018 13:11:58 [id number] [facility] [address] [place] [address] 10/16/2022 12:25:46 10/16/2022 15:25:52 Acute bronchitis 28197611 J20.9 Acute sinusitis 09163192 J01.90 Health Concerns Section Related Observation LastModified by Organization Detai ls LastModified Time None Recorded Concern Status LastModified by Organization Details LastModified Time None Recorded Advance Directives Directive None Recorded Payers Insurance Date Sequence Insurance Name Policy Number Policy Acosta Covered Member ID Acosta Member ID Guarantor Name 01/04/2023 1 [place] [employer] Aisha Arnold [id number] Aisha Arnold 10/18/2022 2 [place] [id number] Aisha Arnold [id number] Aisha Arnold 10/16/2022 [place] - SPECIALITY CLAIMS (MEDICARE DME REGION A) Aisha Arnold [id number] Aisha Arnold Notes Date Note Type Note Provider Name and Address Organization Details Recorded Time 10/16/2022 text/html Skin Redness UCR eported by Patient CoughReported by PatientHPIFor source of patient information, patient reportsinformation obtained from patient. For duration, patient reports___ daysandsymptoms lasting over 2 weeks(4 weeks). For associated symptoms, patient reportsno fever,no chills,no chest pain,no heartburn,no nausea, andno vomiting.The patient reports that has been sick since around Wall. Ongoing chest congestion and sinus congestion. She has been feeling increased shortness of breath. Wearing a Holter Monitor unrelated to this illness. She states that she has not had a fever. She has been now having sinus pressure. No ear pain. No sore throat. No history of asthma or COPD. BRAYDEN ESCAMILLA [address], [place], [address], [place] - [facility] 10/16/2022 22:14:03 OBGyn Episode No OBEpisode recorded.
--- OUTSIDE RECORDS SUMMARY | 2025-06-26 10:33 | XMS_ITS | Clinical Summary ---
Author Organization [facility] Address [address] [place] [address] Care Team Providers Care Mock Up Builder Name Role Phone Antonio Cristobal MD Primary Care Provider [phone] Allergies Active Allergy Reactions Criticality Noted Date [...] age to complete this topic Care Teams Mock Up Builder Relationship Specialty Start Date End Date Antonio Cristobal MD [address] [facility] [address] [place] [address] PCP - General Associate Director Career Services 07/10/18
--- OUTSIDE RECORDS SUMMARY | 2025-06-26 10:33 | XMS_ITS | Clinical Summary ---
Author Organization [facility] [employer] Address [address] [place] [address] Phone Care Team Providers Care Bath Steward/Stewardess Name Role Phone Nader Rodgers MD Primary Care Provider [phone] Allergies Active Allergy Reactions Criticality Noted Date Comments Ciprofloxacin Hives 07/26/2018 Latex 09/21/2022 Nickel 05/27/2021 Sulfa (Sulfonamide Antibiotics) 06/13 Medications ascorbic acid (VITAMIN C) 500 mg chewable tablet Chew 2 tablets (1,000 mg total) 1 (one) time each day. Active calcium carb/mag/vitamin D2 (OWFDNTX-NJMASSDFW-FGHM MIN D2 ORAL) Take 1,200 mg by mouth [...] Does not apply route as needed. Active oxyBUTYnin XL (DITROPAN-XL) 10 mg 24 hr tablet Take 1 tablet (10 mg total) by mouth 1 (one) time each day. Do not crush, chew, or split. Active lactobacillus acidoph-l.bulgar 100 million cell granules in packet Take 1 packet by mouth. Active pantoprazole (PROTONIX) 40 mg EC tabletIndications:Gastr oesophageal reflux disease without esophagitis Take 1 tablet (40 mg total) by mouth 1 (one) time each day. Do not crush, chew, or split. 90 each 3 025 2025 Active apixaban (Eliquis) 5 mg tabletIndications:Parox ysmal atrial fibrillation (CMS/[facility] V24, CMS/HCC V28) TAKE ONE TABLET BY MOUTH TWICE DAILY 180 tablet 1 025 Active isosorbide mononitrate (IMDUR) 30 mg 24 hr tablet TAKE ONE TABLET BY MOUTH ONCE DAILY 90 tablet 1 025 Active dilTIAZem XR (DILACOR XR) 240 mg 24 hr capsule TAKE ONE CAPSULE BY MOUTH ONCE DAILY 90 capsule 1 025 Active rosuvastatin (CRESTOR) 10 mg tabletIndications:Pure hypercholesterolemia TAKE ONE TABLET BY MOUTH ONCE DAILY 90 tablet 1 025 Active rosuvastatin (CRESTOR) 10 mg tabletIndications:Pure hypercholesterolemia Take 1 tablet (10 mg total) by mouth 1 (one) time each day. 90 each 1 025 2024 Discontinued dilTIAZem XR (DILACOR XR) 240 mg 24 hr capsule TAKE ONE CAPSULE BY MOUTH ONCE DAILY 90 capsule 1 025 2024 Discontinued Active Problems Problem Noted Date Diagnosed Date Paroxysmal atrial fibrillation ([facility] V24, [facility] V28) 08/23/2024 Assessment & Plan (01/01/2025 12:57 [...] and heart rate control. 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 Subsequent left heart catheterization showed minimal luminal regularities in the left main, LAD, RCA and FEATHER SAWYER of the left circumflex. Medical therapy was [...] the current antihypertensive medication regimen. Microvascular angina ([facility] V24) 02/10/2021 Overview (07/20/2024): Last Assessment [...] Encounters Date Type Department Care Team Description 06/25/2025 Telephone [facility] [address] [place] [phone] Everett Degroot MD 04/23/2025 11:42 AM EDT - 04/23/2025 2:25 PM EDT Emergency [facility] Emergency [address] [place] [phone] Tomi Estrada MD Cystitis (Primary Dx) Discharge Disposition: Home or Self Care 04/19/2025 Lab Requisition [facility] - Main Lab [address] [facility] [place] [address] Clemente Weems PA Urinary tract infection, site not specified from Last 3 Months Surgical History Surgery Date Site/Laterality Comments CARDIAC CATHETERIZATION DONE ON 09/26/2024 AT [facility] INDICATIONS: Atypical chest pain. ESOPHAGOGASTRODUODENOSCOPY [...] Description 06/26/2025 10:50 AM EDT Office Visit [facility] [address] [place] [address] [place] [phone] Everett Degroot MD [address] [place] [address] [address] [place] [phone] 03/18/2026 8:00 AM EDT Office Visit Gastroenterology - [address] [place] [phone] Mayte Brown PA [facility][note 3] [place] [address] Health Maintenance Due Date Last Done Comments Breast Cancer Screening 1950 Colorectal Cancer Screening: Colonoscopy 1950 Zoster Vaccines (2 of 3) 04/20/2013 02/23/2013, 02/10 Pneumococcal Vaccine: 50+ Years (2 of 2 - PCV) 12/27/2019 12/26/2018, 02/22/2013, 02/21/2013 Falls Risk Assessment 08/21/2022 Hepatitis C Screening [...] (Lipid Panel) 08/27/2029 08/27/2024 Hepatitis A Vaccines Completed 01/21/2014, 08/20/2013, 07/20/2013 Hepatitis B Vaccines Completed 01/21/2014, 08/20/2013, 07/20/2013 [...] LAB CHEMISTRY METHOD 04/23/2025 2:15 PM EDT [facility] Potassium 4.4 3.5 - 5.5 mmol/L LAB CHEMISTRY METHOD 04/23/2025 2:15 PM EDT [facility] Chloride 106 96 - 110 mmol/L LAB CHEMISTRY METHOD 04/23/2025 2:15 PM [facility] CO2 28 21 - 32 mmol/L LAB CHEMISTRY METHOD 04/23/2025 2:15 PM [facility] Anion Gap 6 3 - 11 LAB CHEMISTRY METHOD 04/23/2025 2:15 PM [facility] Glucose 97 70 - 100 mg/dL LAB CHEMISTRY METHOD 04/23/2025 2:15 PM EDT [facility] BUN 13 5 - 25 mg/dL LAB CHEMISTRY METHOD 04/23/2025 2:15 PM EDT [facility] Creatinine 0.79 0.50 - 1.10 mg/dL LAB CHEMISTRY METHOD 04/23/2025 2:15 PM EDT [facility] eGFR 80 >=60 mL/min/1. 73m2 LAB CHEMISTRY METHOD 04/23/2025 2:15 PM EDT [facility] Comment:Calculation based on the Chronic Kidney Disease Epidemiology Collaboration (CKD-EPI) equation refit without adjustment for race. BUN/Creatinine Ratio 16.5 LAB CHEMISTRY METHOD 04/23/2025 2:15 PM EDT [facility] Calcium 9.2 8.5 - 10.5 mg/dL LAB CHEMISTRY METHOD 04/23/2025 2:15 PM EDT [facility] Blood Venous blood specimen / Unknown Venipuncture / Unknown 04/23/2025 1:15 PM EDT 04/23/2025 1:41 PM EDT us Toim Estrada MD LAB BLOOD ORDERABLES Final Resul t [facility] [address] [place] [address], * (ABNORMAL) CBC auto differential (04/23/2025 11:55 AM EDT) WBC 9.4 4.8 - 10.8 K/mcL LAB HEMETOLOGY METHOD 04/23/2025 12:23 PM EDT [facility] RBC 5.30(H) 3.80 - 4.80 M/mcL LAB HEMETOLOGY METHOD 04/23/2025 12:23 PM EDT [facility] Hemoglobin 15.1 11.5 - 16.0 g/dL LAB HEMETOLOGY METHOD 04/23/2025 12:23 PM EDT [facility] Hematocrit 47.0 35.0 - 47.0 % LAB HEMETOLOGY [facility]25 [facility] MCV 88.2 79.0 - 98.0 FL LAB HEMETOLOGY METHOD 04/23[facility]2025 12[facility] MCH 28.3 27.0 - 32.0 pcg LAB HEMETOLOGY METHOD 04/23/2025 12[facility] MCHC 32.1 32.0 - 37.0 g/dL [...] LAB HEMETOLOGY METHOD 04/23/2025 12:23 PM EDT [facility] Basophils Relative 0.8 % LAB HEMETOLOGY METHOD 04/23/2025 12:23 PM EDT [facility] Immature Granulocytes Relative 0.6 % LAB HEMETOLOGY METHOD 04/23/2025 12:23 PM EDT [facility] Neutrophils Absolute 6.14 1.50 - 7.00 K/mcL LAB HEMETOLOGY METHOD 04/23/2025 12:23 PM EDT [facility] Lymphocytes Absolute 2.05 1.00 - 5.00 K/mcL LAB HEMETOLOGY METHOD 04/23/2025 12:23 PM EDT [facility] Monocytes Absolute 0.86 0.20 - 1.00 K/mcL LAB HEMETOLOGY METHOD 04/23/2025 12:23 PM [facility] Eosinophils Absolute 0.25 0.00 - 0.50 K/mcL LAB HEMETOLOGY METHOD 04/23/2025 12:23 PM T [facility] Basophils Absolute 0.08 0.00 - 0.20 K/mcL LAB HEMETOLOGY METHOD 04/23/2025 12:23 PM [facility] Immature Granulocytes Absolute 0.06(H) 0.00 - 0.03 K/mcL LAB HEMETOLOGY METHOD 04/23/2025 12:23 PM [facility] Blood Venous blood specimen / Unknown Venipuncture / Unknown 04/23/2025 11:55 AM EDT 04/23/2025 12:14 PM EDT us Tomi Estrada MD LAB BLOOD ORDERABLES Final Resul t [facility] [address] [place] [address], * (ABNORMAL) Urinalysis with reflex microscopic and culture (04/23/2025 8:40 AM EDT) Specific [place] Urine 1.008 1.003 - 1.030 LAB URINALYSIS [...] - AUTOMATED METHOD 04/23/2025 9:33 AM EDT [facility] Bacteria, Urine Few(A) Negative /HPF LAB URINALYSIS - AUTOMATED METHOD 04/23/2025 9:33 AM EDT [facility] Hyaline Casts, Urine 0.8 0 - 3 /LPF LAB URINALYSIS - AUTOMATED METHOD 04/23/2025 9:33 AM EDT [facility] Urine Urine specimen obtained by clean catch procedure / Unknown Non-blood Collection / Unknown 04/23/2025 8:40 AM EDT 04/23/2025 9:16 AM EDT Jesus Blum MD LAB URINE ORDERABLES Final Result Performing Organization Address [facility]/ZIP Co de Phone Number [facility] [address] [place] [address], [place] [phone] * Schmitz urine culture tube (04/23/2025 8:40 AM EDT) Extra Tube Hold for add-ons. 04/23/2025 11:01 AM EDT [facility] Comment:Auto resulted. Urine Urine specimen obtained by clean catch procedure / Unknown Non-blood Collection / Unknown 04/23/2025 8:40 AM EDT 04/23/2025 9:16 AM EDT Jesus Blum MD LAB URINE ORDERABLES Final Result Performing Organization Address City/[facility]/ZIP Co de Phone Number [facility] [address] [place] [address], [place] [phone] * (ABNORMAL) Culture urine (04/23/2025 8:40 AM EDT) Only the most recent of2 resultswithin the time period is included. Culture, Urine >=100,000 CFU/mL Pseudomonas aeruginosa(A) STEPHANE 04/25/2025 9:10 AM EDT [facility] Comment: This is an edited result. [...] LAB MICROBIOLOGY - GENERAL ORDERABLES Final Result [facility] [address] [place] [address], * Lipid panel (08/27/2024 2:33 PM EST) Pathologist [facility] Cholesterol Total 173 100 - 199 mg/dL [...] AM EST Performed at: 01 - [facility] [address] [id number] Special Warfare Operator: Rachel Blevins MD, Phone: [phone] Everett Degroot MD LAB BLOOD ORDERABLES F inal Result [facility] 1 from Last 3 Months or Most Recently Relevant to Health Maintenance Insurance MEDICARE [facility] Care Teams Bath Steward/Stewardess Relationship Specialty Start Date End Date Nader Rodgers MD [address] PCP - General Internal Medicine 05/27/21
--- OUTSIDE RECORDS SUMMARY | 2025-06-26 10:33 | XMS_ITS | Encounter Summary ---
Author Organization [facility] Address [address] [place] [address] Care Team Providers Care Case Operator Name Role Phone Nader Rodgers MD Primary Care Provider [phone] Everett Degroot MD Unavailable Unava ilable Juan Rice MD Unavailable [phone] Maxwell Leonardo MD Unavailable Unavailable Laura Delaney APRN Unavailable [phone] Encounter Details Date Type Department Care Team (Late st Contact Info) Description 01/10/2020 Scanned Document [facility] [place] at [address] [address] Provider, Generic Social History Tobacco [...] on filedocumented in this encounter Care Teams Case Operator Relationship Specialty Start Date End Date Nader Rodgers MD [address] [place] [address] PCP - General 12/27/19 Everett Degroot MD [address] [place] [address] Clearer Cardiovascular Disease 12/27/19 Juan Rice MD [address] [place] [address] Surgery, Orthopedic 02/12/20 Maxwell Leonardo MD [address] [place] [address] Referring Provider Gastroenterology 02/12/20 Laura Delaney APRN [address] [place] [address] Advanced Practitioner Sleep Medicine 02/12/20 documented as of this encounter
--- OUTSIDE RECORDS SUMMARY | 2025-06-26 10:33 | XMS_ITS | Encounter Summary ---
Author Organization [facility] Address [address] [place] [address] Care Team Providers Care Assistant Clinical Director Name Role Phone Nader Rodgers MD Primary Care Provider [phone] Everett Degroot MD Unavailable Unava ilable Juan Rice MD Unavailable [phone] Maxwell Leonardo MD Unavailable Unavailable Laura Delaney APRN Unavailable [phone] Encounter Details Date Type Department Care Team (Late st Contact Info) Description 12/31/2019 Scanned Document [facility] [place] at [address] [address] Provider, Generic Social History Tobacco [...] on filedocumented in this encounter Care Teams Assistant Clinical Director Relationship Specialty Start Date End Date Nader Rodgers MD [address] [place] [address] PCP - General 12/27/19 Everett Degroot MD [address] [place] [address] Horologist Cardiovascular Disease 12/27/19 Juan Rice MD [address] [place] [address] Surgery, Orthopedic 02/12/20 Maxwell Leonardo MD [address] [place] [address] Referring Provider Gastroenterology 02/12/20 Laura Delaney APRN [address] [place] [address] Advanced Practitioner Sleep Medicine 02/12/20 documented as of this encounter
--- OUTSIDE RECORDS SUMMARY | 2025-06-26 10:33 | XMS_ITS | Clinical Summary ---
Author Organization [facility] Address [address] [place] [address] Care Team Providers Care Oil Well Cable Tool Driller Name Role Phone Nader Rodgers MD Primary Care Provider [phone] Everett Degroot MD Unavailable Unava ilable Juan Rice MD Unavailable [phone] Maxwell Leonardo MD Unavailable Unavailable Laura Delaney APRN Unavailable Allergies Active Allergy Reactions Criticality Noted Date [...] stop 1 week prior to surgery Active [place]-3 Fatty Acids (FISH OIL) 1200 MG Cap [...] Zoster (Shingles) Vaccine (1 of 2) 2002 RSV Vaccine 50 years and old er and Patients (1 - Risk 60-74 years 1-dose series) 2012 DXA Bone Density (Females,Ag es 65 and older) 2017 Influenza Vaccine 04/12/2025 COVID-19 Vaccine (1 - 2023-2 5 season) 2025 Hepatitis B Vaccines Aged Out No long er eligible based on patient's age to complete this topic Medical Devices Implanted Type Area Auto Bumper Mechanic Device Identifier Shelf Expiration Date Model / Serial / Lot 6191-1-001 Cement Bone Smpx P Radiopaque Fd Sterl - [id number] Implanted:Qty: 2 on 03/10/2020 by Juan Rice MD at [facility] Cement Right: Knee [employer] - DIV [employer] 11/09/2021 6191-1-001 / / [id number] Component Femoral E Knee Right Cement Lpsflx Nxgn Tiv Sterl - [id number] Implanted:Qty: 1 on 03/10/2020 by Juan Rice MD at [facility] Joint Prosthesis Right: Knee [employer] [id number] 08/11/2029 [id number] / / [id number] Baseplate Tibial Nxgn 4 Knee Stem Prect - [id number] Implanted:Qty: 1 on 03/10/2020 by Juan Rice MD at [facility] Joint Prosthesis Right: Knee [employer] [id number] 11/09/2029 [id number] / / [id number] Surface Articular 10mm Lpsflx 3-4 E-F Knee Fix Net Mold - [id number] Implanted:Qty: 1 on 03/10/2020 by Juan Rice MD at [facility] Joint Prosthesis Right: Knee [employer] [id number] 03/11/2028 [id number] / / [id number] Component Patellar Std 8.5mm 32mm Nxgn Uhmwpe Knee Sterl - [id number] Implanted:Qty: 1 on 03/10/2020 by Juan Rice MD at [facility] Joint Prosthesis Right: Knee [employer] [id number] 12/11/2027 [id number] / / [id number] Insurance MEDICARE PART A & B [facility] Advance Directives * Full Code (Latest Code Status on File) Date Activated Date Inactivated Comments 03/10/2020 12:17 PM * Full Code Date Activated Date Inactivated Comments 03/10/2020 5:44 AM 03/10/2020 12:17 PM Care Teams Oil Well Cable Tool Driller Relationship Specialty Start Date End Date Nader Rodgers MD [address] [place] [address] PCP - General 12/27/19 Everett Degroot MD [address] [place] [address] Gravel Hauler Cardiovascular Disease 12/27/19 Juan Rice MD [address] [place] [address] Surgery, Orthopedic 02/12/20 Maxwell Leonardo MD [address] [place] [address] Referring Provider Gastroenterology 02/12/20 Laura Delaney APRN [address] [place] [address] Advanced Practitioner Sleep Medicine 02/12/20
--- OUTSIDE RECORDS SUMMARY | 2025-06-26 10:33 | XMS_ITS | Encounter Summary ---
Author Organization [facility] Address [address] [place] [address] Care Team Providers Care Senior Microsoft Consultant Name Role Phone Nader Rodgers MD Primary Care Provider [phone] Everett Degroot MD Unavailable Unava ilable Juan Rice MD Unavailable [phone] Maxwell Leonardo MD Unavailable Unavailable Laura Delaney APRN Unavailable [phone] Encounter Details Date Type Department Care Team (Late st Contact Info) Description 12/31/2019 Scanned Document [facility] [place] at [address] [address] Provider, Generic Social History Tobacco [...] on filedocumented in this encounter Care Teams Senior Microsoft Consultant Relationship Specialty Start Date End Date Nader Rodgers MD [address] [place] [address] PCP - General 12/27/19 Everett Degroot MD [address] [place] [address] [address] Vehicle Operator Cardiovascular Disease 12/27/19 Juan Rice MD [address] [place] [address] Surgery, Orthopedic 02/12/20 Maxwell Leonardo MD [address] [place] [address] Referring Provider Gastroenterology 02/12/20 Laura Delaney APRN [address] [place] [address] Advanced Practitioner Sleep Medicine 02/12/20 documented as of this encounter
== END 2025-06-26 09:25 | disposition home or self-care (01) ==
LOC: HO.HMGAL 09:23
PROVIDERS: PCP Internal Medicine; Visit Provider Registered Nurse Emergency
DX: J30.89 Other allergic rhinitis (principal)
CPT/HCPCS: 95117; 95165

== ENCOUNTER 2025-07-29 15:51 | Outpatient (AMB) | payer MEDICARE, SELFPAY | END 2025-07-29 15:53 | disposition home or self-care (01) | LOC: HO.HMGAL 15:51 | PROVIDERS: PCP Internal Medicine; Visit Provider Registered Nurse Emergency | DX: J30.89 Other allergic rhinitis (principal) | CPT/HCPCS: 95117; 95165 ==

== ENCOUNTER 2025-09-02 09:59 | Outpatient (AMB) | payer MEDICARE, SELFPAY ==
--- OUTSIDE RECORDS SUMMARY | 2024-11-26 03:30 | XMS_ITS ---
Author Organization [facility] Address [address] [place] [address] Care Team Providers Care Photographic Equipment Assembler Name Role Phone AMBREEN DISLA Primary Care Provider REASON FOR VISIT 40/ 6 months Encounters Encounter Location Date Provider Diagnosis [place] [phone] 11/26/2024 AMBREEN DISLA Plan Of Treatment Next Appt Details Provider Name:AMBREEN DISLA, 12/03/2025 09:45:00 AM, [address] [place] [address], [id number], Progress Notes * SAM MARQUEZ ADOB: [birth year] (74 yo F)Acc No.[id number]:11/26/2024 Progress Notes Patient: SAM CHINO Provider: Kalen DISLA MD :1950 A ge:74 Y S ex:Female Date:11/26/2024 Address:[address], [place] Subjective: * Chief Complaints: * 4 0/ 6 months * Electronic signature of AMBREEN DISLA MD on 09/02/2025 at 11:55 AM EST Sign off status: Pending * Provider: Kalen DISLA MD Date: 0 11/26/2024 Generated for Kaileyi ng/Gavino/eTransmitting on: 1 11/03/2024 11:55 AM EST
--- OUTSIDE RECORDS SUMMARY | 2025-06-04 04:00 | XMS_ITS ---
Author Organization [facility] Address [address] [place] [address] Care Team Providers Care Opener Verifier Packer Customs Name Role Phone AMBREEN DISLA Primary Care Provider [phone] REASON FOR VISIT 40/ awv Encounters Encounter Location Date Provider Diagnosis [place] [phone] 06/04/2025 AMBREEN DISLA Plan Of Treatment Next Appt Details Provider Name:AMBREEN DISLA, 12/03/2025 09:45:00 AM, [address] [place] [address], [phone], Progress Notes * SAM MARQUEZ ADOB: [birth year] (74 yo F)Acc No.[id number]:06/04/2025 Progress Note Patient: SAM CHINO Provider: Kalen DISLA MD :1950 A ge:74 Y S ex:Female Date:06/04/2025 Address:[address], [place] Subjective: * Chief Complaints: * 4 0/ awv Billing Information: * Procedure Codes: * Electronic signature of AMBREEN DISLA MD on 09/02/2025 at 11:54 AM EST Sign off status: Pending * Provider: Kalen DISLA MD Date: 0 06/04/2025 Generated for Irwin ho/Gavino/Melany on: 1 11/03/2024 11:54 AM EST
--- OUTSIDE RECORDS SUMMARY | 2025-09-02 11:54 | XMS_ITS | Patient Health Record ---
Author Organization [facility] Address [address] [place] [address] Care Team Providers Care Vegetable Canner Name Role Phone AMBREEN DISLA Primary Care Provider [phone] [place], NURSING Unavailable [phone] Allergies Allergen (clinical drug ingredient) Drug/Non Drug Allergy documented on EMR Reaction Allergy Type Onset Date Status ciprofloxacin Cipro hives Drug Allergy Act ave Latex Latex Unknown Allergy Active nickel Nickel Unknown Allergy Active Substance with sulfonamide structure and antibacterial mechanism of action (substance) Sulfa Antibiotics hives Drug Allergy Active Reason For Referral No Information Medications Medication SIG (Take, Route, Frequency, Duration) Notes Start Date End Date Status Olmesartan Medoxomil 20 MG Tablet TAKE ONE TABLET BY MOUTH ONCE DAILY; Duration: 90 Active Amoxicillin 500 MG Tablet 4 tablet Orall y 1 hour before dental procedure; Duration: 5 days 05/20/2023 Active Pantoprazole Sodium 40 MG Tablet Delayed Release 1 tab(s) orally once a day 11/24/2016 Active Isosorbide Mononitrate ER 30 MG Tablet Extended Release 24 Hour 1 tab(s) orally once a day (in the morning) Active Rosuvastatin Calcium 10 MG Tablet 1 tab(s) Orally once a day Active dilTIAZem HCl ER 240 MG Tablet Extended Release 24 Hour 1 tablet Orally Once a day; Duration: 30 day(s) Active oxyBUTYnin Chloride ER 10 MG Tablet Extended Release 24 Hour 1 tablet Orally Once a day; Duration: 30 day(s) Active Famotidine 40 MG Tablet 1 tablet Orally Once a day; Duration: 90 day(s) Active Alendronate Sodium 70 MG Tablet TAKE 1 TABLET BY MOUTH WEEKLY 30 MINUTES BEFORE THE FIRST FOOD, BEVERAGE OR MEDICINE OF THE DAY WITH PLAIN WATER; Duration: 84 Active Clobetasol Propionate 0.05 % Cream 1 application Externally Twice a day; Duration: 10 day(s) Active Eliquis 5 MG Tablet 1 tab Orally twice daily Active Social History Tobacco Use: Social History Observation Description Date Details (start date - stop date) Never Smoker NA - NA Social History Tobacco Use: Social Info Question Answer Notes Smoking Are you a: never smoker Additional Details Category Social Info Options Details General 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 Not able to when heart rate gets to 140 or above due to chest burning. Neg stress echo with Dr Anthony 2013 Coffee/Tea/Soda: yes Coffee, 1, cups per day, Tea, sometimes Marital Status experience no Living with smokers in household no Section Notes: never smoked Problems Problem Type SNOMED Code ICD Code Onset Dates Problem Status W/U Status Risk Notes Problem Gastroesophageal reflux disease (disorder) (626316332) GERD [Gastroesophageal reflux disease] (530.81) Active confirmed Problem Dyspepsia (630494894) Dyspepsia NOS (536.8) Active confirmed Problem Back pain (220623704) Back pain (724.5) Active confirmed Problem Epigastric pain (05675185) Abdominal pain, epigastric (789.06) Active confirmed Problem Family history of malignant neoplasm (331677082) Family History of malignant neoplasm (V16.0) Active confirmed Problem Chest pain (85692515) CHEST PAIN NOS (786.50) Active confirmed Problem Essential hypertension (18250225) Essential (primary) hypertension (I10) Active confirmed Problem Obstructive sleep apnea syndrome (49468272) ARELY (obstructive sleep apnea) (G47.33) Active confirmed Problem History of polyp of colon (situation) (150848323) Personal history of colonic polyps (Z86.010) Active confirmed Problem Mixed hyperlipidemia (327317428) Mixed hyperlipidemia (E78.2) Active confirmed Problem Gastro-esophageal reflux disease with esophagitis (170995143) Gastro-esophageal reflux disease with esophagitis (K21.0) Active confirmed Problem Gastroesophageal reflux disease without esophagitis (910798694) Gastroesophageal reflux disease without esophagitis (K21.9) Active confirmed Problem Atherosclerotic heart disease of minto coronary artery without angina pectoris (696118505892658) 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) Active confirmed Problem Osteoarthritis of knee (600454084) Primary osteoarthritis of right knee (M17.11) Active confirmed Problem Overactive urinary bladder (disorder) (005998399) OAB (overactive bladder) (N32.81) Active confirmed Problem Meralgia paresthetica (56917644) Meralgia paresthetica, unspecified laterality (G57.10) Active confirmed Vital Signs Blood pressure diastolic 74 mm Hg 06/06/2025 Height 66 in 06/06/2025 Blood pressure systolic 100 mm Hg 06/06/2025 Weight 186.2 lbs 06/06/2025 BMI 30.05 kg/m2 06/06/2025 Encounters Encounter Location Date Provider Diagnosis [place] [id number] 06/06/2025 AMBREEN DISLA Encounter for genera l adult medical examination without abnormal findings Z00.00 ; Essential (primary) hypertension I10 ; 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 I25.10 ; Mixed hyperlipidemia E78.2 ; Gastroesophageal reflux disease without esophagitis K21.9 ; ARELY (obstructive sleep apnea) G47.33 and Other specified disorders of bone density and structure, unspecified site M85.80 [place] [id number] 01/03/2025 AMBREEN DISLA Essential (primary) hypertension I10 ; 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 I25.10 ; Mixed hyperlipidemia E78.2 ; Gastroesophageal reflux disease without esophagitis K21.9 ; ARELY (obstructive sleep apnea) G47.33 and Other specified disorders of bone density and structure, unspecified site M85.[address] [address] 04/24/[address] [address] 10/17/2024 AMBREEN DISLA [facility] [address] [place] [address] [facility]/10[facility] [address] [place] [address] 09/06/2024 AMBREEN DISLA Assessments Encounter Date Diagnosis (ICD Code) Assessment Notes Treatment Notes Treatment Clinical Notes Section Notes 06/06/2025 Encounter for general adult medical examination without abnormal findings (ICD-10 - Z00.00) Reviewed preventative medicine, immunization records, see below. Discussed diet, exercise. 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 Sees Dr Jones. No chest pains. She was recently found to have paroxysmal atrial fibrillation on a Holter monitor. She saw an digital marketing lead who did not recommend ablation at this time. 01/03/2025 Essential (primary) hypertension (ICD-10 - I10) Remains controlled on 2 meds OK at home 01/03/2025 Mixed hyperlipidemia (ICD-10 - E78.2) She is treated with rosuvastatin by Dr Jones. 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 SHe will see Dr Jones soon. No chest pains. She was recently found to have paroxysmal atrial fibrillation on a Holter monitor. She saw an digital marketing lead who did not recommend ablation at this time. She goes into AFib 1-2x per week lasts for 30 min. SHe is anticogulated with Xarelto. 06/06/2025 Mixed hyperlipidemia (ICD-10 - E78.2) She is treated with rosuvastatin by Dr Joens. He monitors her FLP Recall that she had a negative coronary angiogram in 200201/03/2025 Gastroesophageal reflux disease without esophagitis (ICD-10 - K21.9) She takes pantoprazole daily with good benefit. She has no symptoms of heartburn as long as she takes it. She tried to switch to famotidine but did not succeed. She knows to be on the look out for recurrent symptoms, particularly since we are beginning alendronate today. 01/03/2025 ARELY (obstructive sleep apnea) (ICD-10 - G47.33) She has been wearing CPAP nightly for the past 4 years. Polycythemia has resolved. recheck labs next OV. 06/06/2025 Gastroesophageal reflux disease without esophagitis (ICD-10 - K21.9) She takes pantoprazole daily with good benefit. She has no symptoms of heartburn as long as she takes it. She tried to switch to famotidine but did not succeed. She knows to be on the look out for recurrent symptoms, particularly since we are beginning alendronate today. She insists she needs to pantoprazole. 06/06/2025 ARELY (obstructive sleep apnea) (ICD-10 - G47.33) She has been wearing CPAP nightly for the past 5 years. Polycythemia has resolved. She doesnt wear it on vacation and has no trouble. 01/03/2025 Other specified disorders of bone density and structure, unspecified site (ICD-10 - M85.80) Her T-score in September 2023 was -2.1. We should recheck that again in September 2025. She remains on calcium and vitamin D supplements. She fractured her left wrist recently, which is fairly well-healed at this point. However, that changes the equation in terms of treatment for osteoporosis. She is currently excepting initiation of alendronate. Discussed side effects, expectations. So I rec 06/06/2025 Other specified disorders of bone density and structure, unspecified site (ICD-10 - M85.80) Her T-score in September 2023 was -2.1. We should recheck that again in September 2025. She remains on calcium and vitamin D supplements. She fractured her left wrist last year. She is tolerating alendronate without any difficulty. 06/06/2025 Other All HRA questions answered. Emphasized benefit of regular aerobic exercise/healthy diet. *See HPI/preventive medicine Health Risk Assessment reviewed with patient and scanned into chart. Well Visit Over 65 care instructions reviewed Advanced directives: Healthcare Proxy has been formally established and identidied as her Maxwell Opiate use in the past year NONE THC, other receational substances used in the past year NONE Alcohol use: 3 wine/beer per week Memory: no problem noted wears seatbelts: always exercise: [employer] 2x/week Well Visit, Over 65: Care Instructions material was published to portal. Plan Of Treatment Pending Test Test Name Order Date Bone Density 3 site DEXA 05/20/2023 Future Test Test Name Order Date CBC W/ AUTOMATED DIFF 12/15/2021 COMP. METABOLIC 12/15/2021 Next Appt Details Provider Name:AMBREEN DISLA, 12/03/2025 09:45:00 AM, [address] [place], [address], Insurance Providers Payer Name Payer Address Payer Phone Subscriber Number Group Number Insured Name Patient Relationship to Insured Coverage Start Date Coverage End Date MEDICARE [employer] [address] [place] [address] [id number] SAM ANROLD Self - patient is the insured [employer] [facility] [address] [place] [address] [phone] [id number] ALMANICOLETTESAM Self - patient is the insured Medical (General) History Medical History History ICD Code adenomatous colon polyp 6mm at 90cm ///COlon06/24/17-rare tics--Rec [id number] cervical spondylosis/DDD Esophageal reflux egd 4: microscopic esophagitis; repeat EGD 01/2007 normal family hx colon ca allergies lyme disease constipation disc herniated diarrhea 02/2008 stool cx negative, resol leonila 06/13/09 Bilirubin total 1.4 ; 09/16/09 tb 0.6 ibil 0.5 Vitamin D deficiency 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 Pichardo at [facility] -->PT 11/2022 Emergency Contact- Maxwell Arnold () Surgical History Surgery Date(Month/Year) Left wrist reduction 09/04/24 Left Shoulder Cortisone injection 10/14/23 Vaginal bx 10/28/23 bone reduction of shattered right wrist 1989 bicept tendon 2010 Knee arthroscopy dental surg gum surg EGD 01/2007 colonoscopy left diverticula 01/2007 L foot stress fx colonoscopy: no polyps 12/19/2001 Cortisone injection in left foot 05/2024 Hospitalization History Reason Date(Month/Year) as above fainting 10/22 [facility] 2024
--- OUTSIDE RECORDS SUMMARY | 2025-09-02 11:55 | XMS_ITS | Clinical Summary ---
Author Organization [facility] Prior to 02/09/[address] [place] [address] Care Team Providers Care Timber Framer Name Role Phone Antonio Cristobal MD Primary Care Provider [phone] Allergies Active Allergy Reactions Criticality Noted Date [...] age to complete this topic Care Teams Timber Framer Relationship Specialty Start Date End Date Antonio Cristobal MD [address] [address] [place] [address] PCP - General Adjuster Electrical Contacts 07/10/18
--- OUTSIDE RECORDS SUMMARY | 2025-09-02 11:55 | XMS_ITS | Encounter Summary ---
Author Organization [facility] Address [address] [place] [address] Care Team Providers Care Kapok And Cotton Machine Operator Name Role Phone Nader Rodgers MD Primary Care Provider [phone] Encounter Details Date Type Department Care Team (Late st Contact Info) Description 07/31/2025 Results Follow-Up [facility] [address] [place] [address] Daksha Baugh NP [address] [place] [address] Dr [address] [place] [address] Social History Tobacco Use Types [...] Assessment Author No 04/23/2025 12:16 PM Michael Almeida, DEBRA * Are you blind or do you have serious difficulty seeing, even when wearing glasses? Answer Date of Assessment Author No 04/23/2025 12:16 PM Michael Almeida, DEBRA * Do you have serious difficulty walking [...] of Assessment Author No 04/23/2025 12:16 PM EDMichael Nair RN documented as of this encounter Mental Status * Because of a physical, mental, or emotional condition, do you have serious difficulty concentrating, remembering, or making decisions? (5 years old or older) Answer Entry Date Author No 04/23/2025 12:16 PM EDMichael Nair RN documented in this encounter Ordered Prescriptions Prescription Sig Dispense Quantity Refills Last Filled Start Date End Date rosuvastatin (CRESTOR) 20 mg tablet Take 1 tablet (20 mg total) by mouth 1 (one) time each day. 90 each 2 07/31/2025 documented in this encounter Progress Notes * Nicole Torres - 07/31/2025 3:48 PM EST Patient is returning your call, she also said she would like the results mailed to her house. documented in this encounter Plan of Treatment Upcoming Encounters Date Type Department Care Team (Late st Contact Info) Description 12/27/2025 10:40 AM EDT Office Visit [facility] [address] [place] [address] Daksha Baugh NP [address] [place] [address] [place] [address] 03/18/2026 8:00 AM EDT Office Visit Gastroenterology - [address] [place] [phone] Mayte Brown PA [facility] [place] [phone] documented as of this encounter Visit Diagnoses Not on filedocumented in this encounter Discontinued Medications Medication Sig Discontinue Reason Start Date End Da te rosuvastatin (CRESTOR) 10 mg tabletIndications:Pure hypercholesterolemia TAKE ONE TABLET BY MOUTH ONCE DAILY Dose adjustment 05/28/2025 07/31/2025 documented as of this encounter Care Teams Kapok And Cotton Machine Operator Relationship Specialty Start Date End Date Nader Rodgers MD [address] [place] [address] PCP - General Internal Medicine 05/27/21 documented as of this encounter
--- OUTSIDE RECORDS SUMMARY | 2025-09-02 11:55 | XMS_ITS | Encounter Summary ---
Author Organization [facility] Address [address] [place] [address] Care Team Providers Care Floor Manager Name Role Phone Nader Rodgers MD Primary Care Provider [phone] Everett Jones Pla, MD Unavailable Juan Rice MD Unavailable [phone] Maxwell Leonardo MD Unavailable Unavailable Laura Delaney APRN Unavailable [phone] Encounter Details Date Type Department Care Team (Late st Contact Info) Description 12/31/2019 Scanned Document [facility] [place] at [address] [address] Provider, Generic Social History Tobacco [...] on filedocumented in this encounter Care Teams Floor Manager Relationship Specialty Start Date End Date Nader Rodgers MD [address] [place] [address] PCP - General 12/27/19 Everett Jones Pla, MD [address] [place] [address] Electrician Helper Automotive Cardiovascular Disease 12/27/19 Juan Rice MD [address] [place] [address] Surgery, Orthopedic 02/12/20 Maxwell Leonardo MD [address] [place] [address] Referring Provider Gastroenterology 02/12/[address] [facility] [address] [address] Advanced Practitioner Sleep Medicine 02/12/20 documented as of this encounter
--- OUTSIDE RECORDS SUMMARY | 2025-09-02 11:55 | XMS_ITS | Encounter Summary ---
Author Organization [facility] Address [address] [place] [address] Care Team Providers Care Partner Marketing Intern Name Role Phone Nader Rodgers MD Primary Care Provider [phone] Everett Jones Pla, MD Unavailable Juan Rice MD Unavailable [phone] Maxwell Leonardo MD Unavailable Unavailable Laura Delaney APRN Unavailable [phone] Encounter Details Date Type Department Care Team (Late st Contact Info) Description 02/19/2019 Scanned Document [facility] [place] at [address] [address] Cardiology, Scan Social History Tobacco [...] on filedocumented in this encounter Care Teams Partner Marketing Intern Relationship Specialty Start Date End Date Nader Rodgers MD [address] [place] [address] PCP - General 12/27/19 Everett Jones Pla, MD [address] [place] [address] Chicle Grinder Feeder Cardiovascular Disease 12/27/19 Juan Rice MD [address] [place] [address] Surgery, Orthopedic 02/12/20 Maxwell Leonardo MD [address] [place] [address] Referring Provider Gastroenterology 02/12/20 Laura Delaney APRN [address] [place] [address] Advanced Practitioner Sleep Medicine 02/12/20 documented as of this encounter
--- OUTSIDE RECORDS SUMMARY | 2025-09-02 11:55 | XMS_ITS | Encounter Summary ---
Author Organization [facility] Address [address] [place] [address] Care Team Providers Care Banking Services Advisor Name Role Phone Nader Rodgers MD Primary Care Provider [phone] Everett Jones Pla, MD Unavailable [phone] Juan Rice MD Unavailable [phone] Maxwell Leonardo MD Unavailable Unavailable Laura Delaney APRN Unavailable [phone] Encounter Details Date Type Department Care Team (Late st Contact Info) Description 03/21/2019 Scanned Document [facility] [place] at [address] [address] Cardiology, Scan Social History Tobacco [...] on filedocumented in this encounter Care Teams Banking Services Advisor Relationship Specialty Start Date End Date Nader Rodgers MD [address] [place] [address] PCP - General 12/27/19 Everett Jones Pla, MD [address] [place] [address] Outreach Analyst Cardiovascular Disease 12/27/19 Juan Rice MD [address] [place] [address] Surgery, Orthopedic 02/12/20 Maxwell Leonardo MD [address] [place] [address] Referring Provider Gastroenterology 02/12/20 Laura Delaney APRN [address] [place] [address] Advanced Practitioner Sleep Medicine 02/12/20 documented as of this encounter
--- OUTSIDE RECORDS SUMMARY | 2025-09-02 11:55 | XMS_ITS | Clinical Summary ---
Author Organization [facility] Address [address] [place] [address] Care Team Providers Care Director Automotive Name Role Phone Nader Rodgers MD Primary Care Provider [phone] Everett Jones Pla, MD Unavailable Juan Rice MD Unavailable [phone] Maxwell Leonardo MD Unavailable Unavailable Laura Delaney APRN Unavailable [phone] Allergies Active Allergy Reactions Criticality Noted Date [...] stop 1 week prior to surgery Active Bowlegs-3 Fatty Acids (FISH OIL) 1200 MG Cap Take by mouth every morning. Last day to take is 03-02-20 - stop 1 week prior to surgery Active meloxicam (MOBIC) 7.5 MG tablet Take 7.5 mg by mouth every morning. Last day to take is 6--20 - stop 1 week prior to surgery Active glucosamine chondroitin complex (OSTEO BI-FLEX) Tab tablet Take by mouth every morning. Last day to take is 6--20 - stop 1 week prior to surgery [...] affect area. Last day to take is 20 - [...] 50+ (1 of 1 - PCV) 2002 RSV Vaccine 50 years and old er and Patients (1 - Risk 50-74 years 1-dose series) 2002 Zoster (Shingles) Vaccine (1 of 2) 2002 DXA Bone Density (Females,Ag es 65 and older) 2017 Influenza Vaccine 04/12/2025 COVID-19 Vaccine (1 - 2024-2 6 season) 2025 Hepatitis B Vaccines Aged Out No long er eligible based on patient's age to complete this topic Medical Devices Implanted Type Area Classroom Instructor Device Identifier Shelf Expiration Date Model / Serial / Lot 6191-1-001 Cement Bone Smpx P Radiopaque Fd Sterl - [id number] Implanted:Qty : 2 on 03/10/2020 by Juan Rice MD at [facility] Cement Right: Knee [employer] - 11/09/2021 6191-1-001 / / [id number] Component Femoral E Knee Right Cement Lpsflx Nxgn Tiv Sterl - [id number] Implanted:Qty : 1 on 03/10/2020 by Juan Rice MD at [facility] Joint Prosthesis Right: Knee [employer] [id number] 08/11/2029 [id number] / / [id number] Baseplate Tibial Nxgn 4 Knee Stem Prect - [id number] Implanted:Qty : 1 on 03/10/2020 by Juan Rice MD at [facility] Joint Prosthesis Right: Knee [employer] [id number] 11/09/2029 [id number] / / [id number] Surface Articular 10mm Lpsflx 3-4 E-F Knee Fix Net Mold - [id number] Implanted:Qty : 1 on 03/10/2020 by Juan Rice MD at [facility] Joint Prosthesis Right: Knee [employer] [id number] 03/11/2028 [id number] / / [id number] Component Patellar Std 8.5mm 32mm Nxgn Uhmwpe Knee Sterl - [id number] Implanted:Qty : 1 on 03/10/2020 by Juan Rice MD at [facility] Joint Prosthesis Right: Knee [employer] [id number] 12/11/2027 [id number] / / [id number] Insurance MEDICARE PART A & B [facility] Advance Directives * Full Code (Latest Code Status on File) Date Activated Date Inactivated Comments 03/10/2020 12:17 PM * Full Code Date Activated Date Inactivated Comments 03/10/2020 5:44 AM 03/10/2020 12:17 PM Care Teams Director Automotive Relationship Specialty Start Date End Date Nader Rodgers MD [address] [place] [address] PCP - General 12/27/19 Everett Jones Pla, MD [address] [place] [address] Histology Manager Cardiovascular Disease 12/27/19 Juan Rice MD [address] [place] [address] Surgery, Orthopedic 02/12/20 Maxwell Leonardo MD [address] [place] [address] Referring Provider Gastroenterology 02/12/20 Laura Delaney APRN [address] [address] Advanced Practitioner Sleep Medicine 02/12/20
--- OUTSIDE RECORDS SUMMARY | 2025-09-02 11:55 | XMS_ITS | Clinical Summary ---
Author Organization [facility] Get Smart Content Address [address] [place] [address] Phone Care Team Providers Care Field Sales Executive Name Role Phone Nader Rodgers MD Primary Care Provider [phone] Allergies Active Allergy Reactions Criticality Noted Date Comments Ciprofloxacin Hives 07/26/2018 Latex 09/21/2022 Nickel 05/27/2021 Sulfa (Sulfonamide Antibiotics) 06/13 Medications ascorbic acid (VITAMIN C) 500 mg chewable tablet Chew 2 tablets (1,000 mg total) 1 (one) time each day. Active calcium carb/mag/vitamin D2 (CALCIUM-MAGNESI UM-VITAMIN D2 ORAL) Take 1,200 mg by mouth [...] mouth. Active pantoprazole (PROTONIX) 40 mg EC tabletIndication s:Gastroesophage al reflux disease without esophagitis Take 1 tablet (40 mg total) by mouth 1 (one) time each day. Do not crush, chew, or split. 90 each 3 03/18/20 25 026 Active isosorbide mononitrate (IMDUR) 30 mg 24 hr tablet TAKE ONE TABLET BY MOUTH ONCE DAILY 90 tablet 1 04/10/20 25 Active dilTIAZem XR (DILACOR XR) 240 mg 24 hr capsule TAKE ONE CAPSULE BY MOUTH ONCE DAILY 90 capsule 1 05/28/20 25 Active alendronate (FOSAMAX) 70 mg tablet Take 1 tablet (70 mg total) by mouth every 7 (seven) days. Take in the morning with a full glass of water, on an empty stomach, and do not take anything else by mouth or lie down for the next 30 min. Active rosuvastatin (CRESTOR) 20 mg tablet Take 1 tablet (20 mg total) by mouth 1 (one) time each day. 90 each 2 07/31/20 25 Active apixaban (Eliquis) 5 mg tabletIndication s:Paroxysmal atrial fibrillation (CMS/HCC V24, CMS/HCC V28) TAKE ONE TABLET BY MOUTH TWICE DAILY 180 tablet 3 08/21/20 25 Active apixaban (Eliquis) 5 mg tabletIndication s:Paroxysmal atrial fibrillation (CMS/HCC V24, CMS/HCC V28) TAKE ONE TABLET BY MOUTH TWICE DAILY 180 tablet 1 03/26/20 25 025 Discontinued Active Problems Problem Noted Date Diagnosed Date Paroxysmal atrial fibrillation 08/23/2024 Assessment & Plan (06/26/2025 11:40 AM EDT): The patient has a history of paroxysmal atrial fibrillation. The patient continues on rate control therapy with diltiazem. She only has infrequent but brief episodes of A-fib. She has already been evaluated by the EP service (Dr. Quezada) who recommended continuing rate control therapy. On today's visit, the patient denies any recent change in her symptoms. As such, we will continue her current rate control therapy. Also, the patient has a [id number] score of 4 and continues on anticoagulation therapy with apixaban. No episodes of abnormal bleeding have been noted. Will continue current therapy. Assessment & Plan (01/01/2025 12:57 PM EDT): [...] and heart rate control. She has a [id number] or 4 and continues on anticoagulation therapy [...] hours); Future Coronary artery disease invo lving [place] coronary artery of [place] heart without angina pectoris 08/23/2024 Assessment & Plan (06/26/2025 11:40 AM EDT): The patient has a history of CAD. Left heart cath done in September 2024 showed a RAIL LAYER of the circumflex and minimal disease in the left main, LAD, and RCA. As such, medical therapy was advised. The patient is on antianginal therapy with diltiazem and Imdur. She is also on statin therapy with rosuvastatin. The patient is on antithrombotic therapy with Eliquis due to her history of A-fib. Therefore, no need for aspirin (reference #1). On today's visit, the patient denies any anginal symptoms. As such, we will continue her current medication regimen. The patient has a history of coronary artery disease. During today's visit, we reviewed the warning signs that should prompt an urgent medical evaluation. Specifically, we discussed that the patient should go to the hospital if she develops any chest discomfort at rest or worsening chest discomfort with exertion. References: Juvenal Ojeda, et al. Anticoagulation and Antiplatelet Therapy for Atrial Fibrillation and Stable Coronary Disease: [place]-Analysis of Randomized Trials. J Am Vonda Cardiol. 2024Dec 04;85(11):1081-7194. doi: 10.1016/j.jacc.202.12.030. Epub 2024Sep 28. PMID: [id number]. Assessment & Plan (11/12/2024 10:37 AM EST): As part of the patient's preoperative cardiovascular risk assessment, she underwent a nuclear stress test which was noted to be abnormal with a medium size moderate severity reversible perfusion defect suggestive with ischemia. Subsequent left heart catheterization showed minimal luminal regularities in the left main, LAD, RCA and RAIL LAYER of the left circumflex. Medical therapy was [...] lipid panel earlier today. Assessment & Plan (06/26/2025 11:40 AM EDT): The patient has a history of hyperlipidemia. The patient is currently on rosuvastatin 10 mg orally daily. We will order a new lipid panel to evaluate the patient's current lipid control and determine if any adjustment are needed in the lipid lowering therapy. Orders: Lipid panel; Future Assessment & Plan (11/12/2024 10:37 AM EST): [...] current antihypertensive medication regimen. Assessment & Plan (06/26/2025 11:40 AM EDT): The patient has a history of arterial hypertension. The patient's blood pressure today was noted to be well controlled. We'll continue the current antihypertensive medication regimen. Assessment & Plan (11/12/2024 10:37 AM EST): Blood pressure well-controlled today. She will continue her current antihypertensive medication regimen as prescribed. Assessment & Plan (08/23/2024 8:45 AM EST): The patient has a history of arterial hypertension. The patient's blood pressure today was noted to be well controlled. We'll continue the current antihypertensive medication regimen. 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 Assessment & Plan (06/26/2025 11:40 AM EDT): The patient has a history of possible microvascular angina. She continues on medical therapy with diltiazem and Imdur. She denies any anginal symptoms on today's visit. Will continue her current therapy. Assessment & Plan [...] Encounters Date Type Department Care Team Description 09/02/2025 Telephone [facility] [address] [place] [address] Daksha Baugh NP 08/20/2025 Telephone [facility] [address] [facility] [address] [place] [address] Everett Degroot MD 07/31/2025 Results Follow-Up [facility] [address] [place] [address] Daksha Baugh NP 06/26/2025 10:50 AM EDT Office Visit [facility] [address] [place] [address] Everett Degroot MD Coronary artery disease involving [place] coronary artery of [place] heart without angina pectoris (Primary Dx); Microvascular angina (CMS/HCC V24); Primary hypertension; Paroxysmal atrial fibrillation (CMS/HCC V24, CMS/HCC V28); Pure hypercholesterolemia 06/25/2025 Telephone [facility] [address] [place] [phone] Everett Degroot MD from Last 3 Months Surgical History Surgery Date Site/Laterality Comments CARDIAC CATHETERIZATION DONE ON 09/26/2024 AT [facility] INDICATIONS: Atypical chest pain. ESOPHAGOGASTRODUODENOSCOPY 08/10/2022 COLONOSCOPY [...] Sign Reading Time Taken Comments Blood Pressure 128/68 06/26/2025 10:49 AM EDT Pulse 72 06/26/2025 10:49 AM EDT Temperature 36.6 C (97.9 F) 04/23/2025 12:29 PM EDT Respiratory Rate 17 04/23/2025 12:29 PM EDT Oxygen Saturation 94% 06/26/2025 10:49 AM EDT Inhaled Oxygen Concentration - - Weight 83.9 kg (185 lb) 06/26/2025 10:49 AM EDT Height 167.6 cm (5' 6 ) 06/26/2025 10:49 AM EDT Body Mass Index 29.86 06/26/2025 10:49 AM EDT Plan of Treatment Upcoming Encounters Date Type Department Care Team (Late st Contact Info) Description 12/27/2025 10:40 AM EDT Office Visit [facility] [address] [place] [address] Daksha Baugh NP [address] [place] [address] [address] [place] [address] 03/18/2026 8:00 AM EDT Office Visit Gastroenterology - [address] [place] [phone] Mayte Brown PA [address] [place] [phone] Health Maintenance Due Date Last Done Comments Breast Cancer Screening 1950 Colorectal Cancer Screening: Colonoscopy 1950 Zoster Vaccines (2 of 3) 04/19/2013 02/22/2013 Pneumococcal Vaccine: 50+ Years (2 of 2 - PCV) 12/27/2019 12/26/2018, 02/22/2013 Falls Risk Assessment 08/21/2022 Hepatitis C Screening 08/21/2022 Medicare Annual Wellness Visit 08/21/2022 Osteoporosis Screening (Bone Density Screening) 08/21/2022 Social Influencers of Health Screening 08/21/2022 DTaP,Tdap,and Td Vaccines (3 - Td or Tdap) 02/24/2023 02/24/2013, 03/14/2000 Depression Screening 09/12/2024 COVID-19 Vaccine ( season) 2025 06/04/2025, 06/01/2024, 06/09/2023, Additional history exists Hypertension/CHF/CAD Annual BMP Blood Test 04/23/2026 04/23/2025, 09/25/2024, 08/27/2024 Cholesterol Screening (Lipid Panel) 07/16/2030 07/16/2025, 08/27/2024 Hepatitis A Vaccines Completed 01/21/2014, 08/20/2013, 07/20/2013 Hepatitis B Vaccines Completed 01/21/2014, 08/20/2013, 07/20/2013 RSV Immunization Adult Patients Completed 11/01/2023 Influenza Vaccine Completed 06/04/2025, , 05/12/2023, Additional history exists HIB Vaccines Aged Out No longer eligi [...] Procedure Name Priority Date/Time Associated Diagnosis Comments LIPID PANEL Routine 07/16/2025 8:46 AM EST Pure hypercholesterolemia BASIC METABOLIC PANEL STAT 04/23/2025 1:15 PM EDT from Last 3 Months or Most Recently Relevant to Health Maintenance Results * Lipid panel (07/16/2025 8:46 AM EST) Pathologist [facility] Cholesterol Total 176 100 - 199 mg/dL [facility] Triglycerides 116 0 - 149 mg/dL [facility] HDL Cholesterol 67 >39 mg/dL [facility] VLDL Cholesterol Calculated 20 5 - 40 mg/dL [facility] LDL Chol Calc ([facility]) 89 0 - 99 mg/dL [facility] Blood Venous blood specimen / Unknown 07/16/2025 8:46 AM EST 07/16/2025 Narrative [facility] - 07/17/2025 1:06 AM EST Performed at: 01 - [facility] [address] [id number] [employer] Agent [employer]: Rachel Blevins MD, Phone: [phone] Everett Degroot MD LAB BLOOD ORDERABLES F inal Result [facility] * Basic metabolic panel (04/23/2025 1:15 PM EDT) Sodium 140 133 - 145 mmol/L LAB CHEMISTRY METHOD 04/23/2025 2:15 PM EDT [facility] Potassium 4.4 3.5 - 5.5 mmol/L LAB CHEMISTRY METHOD 04/23/2025 2:[address] [facility] Chloride 106 96 - 110 mmol/L LAB CHEMISTRY METHOD 04/23/2025 2:[address] [facility] CO2 28 21 - 32 mmol/L LAB CHEMISTRY METHOD 04/23/2025 2:[address] [facility] Anion Gap 6 3 - 11 LAB CHEMISTRY METHOD 04/23/2025 2:[address] [facility] Glucose 97 70 - 100 mg/dL LAB CHEMISTRY METHOD 04/23/2025 2:[address] [facility] BUN 13 5 - 25 mg/dL LAB CHEMISTRY METHOD 04/23/2025 2:[address] [facility] Creatinine 0.79 0.50 - 1.10 mg/dL LAB CHEMISTRY METHOD 04/23/2025 2:[address] [facility] eGFR 80 >=60 mL/min/1. 73m2 LAB CHEMISTRY METHOD 04/23/2025 2:[address] [facility] Comment:Calculation based on the Chronic Kidney Disease Epidemiology Collaboration (CKD-EPI) equation refit without adjustment for race. BUN/Creatinine Ratio 16.5 LAB CHEMISTRY METHOD 04/23/2025 2:[address] [facility] Calcium 9.2 8.5 - 10.5 mg/dL LAB CHEMISTRY METHOD 04/23/2025 2:15 PM EDT [facility] Blood Venous blood specimen / Unknown Venipuncture / Unknown 04/23/2025 1:15 PM EDT 04/23/2025 1:41 PM EDT us Tomi Estrada MD LAB BLOOD ORDERABLES Final Resul t [facility] [address] [place] [address], from Last 3 Months or Most Recently Relevant to Health Maintenance Insurance MEDICARE [facility] Care Teams Field Sales Executive Relationship Specialty Start Date End Date Nader Rodgers MD [address] PCP - General Internal Medicine 05/27/21
--- OUTSIDE RECORDS SUMMARY | 2025-09-02 11:55 | XMS_ITS | Encounter Summary ---
Author Organization [facility] Address [address] [place] [address] Care Team Providers Care Fermentologist Name Role Phone Nader Rodgers MD Primary Care Provider [phone] Encounter Details Date Type Department Care Team (Late st Contact Info) Description 04/19/2025 Lab Requisition [facility] - Main Lab [address] [facility] [place] [address] Clemente Weems, [address] [place] [address] Urinary tract infection, site not specified Social [...] Description 12/27/2025 10:40 AM EDT Office Visit [facility] [address] [place] [address] Daksha Baugh NP [address] [place] [address] [address] [place] [phone] 03/18/2026 8:00 AM EDT Office Visit Gastroenterology - [address] [facility] [address] [place] [address] Mayte Brown PA [address] [place] [phone] documented as of this encounter Procedures Procedure Name Priority Date/Time Associated Diagnosis Comments CULTURE URINE Routine 04/19/2025 5:33 PM EDT Urinary tract infection, site not specified documented in this encounter Results * (ABNORMAL) Culture urine (04/19/2025 5:33 PM EDT) Culture, Urine >=100,000 CFU/mL Pseudomonas aeruginosa(A) STEPHANE 04/21/2025 8:38 AM EDT [facility] Urine Urine specimen obtained by [...] Pseudomonas aeruginosa Levofloxacin STEPHANE 1 ug/ml: Susceptible [facility] MICROBIOLOGY - GENERAL TIEN FLORES Final Result [facility] [address] [place] [address], documented in this encounter Visit Diagnoses Diagnosis Urinary tract infection, site not specified documented in this encounter Care Teams Fermentologist Relationship Specialty Start Date End Date Nader Rodgers MD 222 [facility] [address] [place], [place] PCP - General Internal Medicine 05/27/21 documented as of this encounter
--- OUTSIDE RECORDS SUMMARY | 2025-09-02 11:55 | XMS_ITS | Encounter Summary ---
Author Organization [facility] Address [address] [place] [address] Care Team Providers Care Inspector Weights And Measures Name Role Phone Nader Rodgers MD Primary Care Provider [phone] Everett Jones Pla, MD Unavailable Juan Rice MD Unavailable [phone] Maxwell Leonardo MD Unavailable Unavailable Laura Delaney APRN Unavailable [phone] Encounter Details Date Type Department Care Team (Late st Contact Info) Description 12/31/2019 Scanned Document [facility] [place] at [address] [address] Provider, Generic Social History Tobacco [...] on filedocumented in this encounter Care Teams Inspector Weights And Measures Relationship Specialty Start Date End Date Nader Rodgers MD [address] [place] [address] PCP - General 12/27/19 Everett Jones Pla, MD [address] [place] [address] Cloth Inspector Cardiovascular Disease 12/27/19 Juan Rice MD [address] [place] [address] Surgery, Orthopedic 02/12/20 Maxwell Leonardo MD [address] [place] [address] Referring Provider Gastroenterology 02/12/20 Laura Delaney APRN [facility] [address] [address] Advanced Practitioner Sleep Medicine 02/12/20 documented as of this encounter
--- OUTSIDE RECORDS SUMMARY | 2025-09-02 11:55 | XMS_ITS | Encounter Summary ---
Author Organization [facility] Address [address] [place] [address] Care Team Providers Care Ampoule Filler And Sealer Name Role Phone Nader Rodgers MD Primary Care Provider Reason for Visit * Reason Onset Date Comments Appointment 09/02/2025 Encounter Details Date Type Department Care Team (Late st Contact Info) Description 09/02/2025 Telephone [facility] [address] [place] [phone] Daksha Baugh NP [address] [place] [address] [address] [place] [address] Social History Tobacco Use Types [...] 04/23/2025 12:16 PM Michael Almeida RN * Are you blind or [...] documented in this encounter Progress Notes * Edward Yoo - 09/02/2025 9:57 AM EST Scheduled. * Ester Quinteros - 09/02/2025 9:39 AM EST Called patient to schedule appointment from recall and priority list. documented in this encounter Plan of Treatment Upcoming Encounters Date Type Department Care Team (Late st Contact Info) Description 12/27/2025 10:40 AM EDT Office Visit [facility] [address] [place] [address] Daksha Baugh NP [address] [place] [address] [address] [place] [phone] 03/18/2026 8:00 AM EDT Office Visit Gastroenterology - [address] [place] [phone] Mayte Brown PA [address] [place] [phone] documented as of this encounter Visit Diagnoses Not on filedocumented in this encounter Care Teams Ampoule Filler And Sealer Relationship Specialty Start Date End Date Nader Rodgers MD [address] PCP - General Internal Medicine 05/27/21 documented as of this encounter
--- OUTSIDE RECORDS SUMMARY | 2025-09-02 11:55 | XMS_ITS | Encounter Summary ---
Author Organization [facility] Address [address] [place] [address] Care Team Providers Care Director Of Revenue Cycle Management Name Role Phone Nader Rodgers MD Primary Care Provider [phone] Everett Jones Pla, MD Unavailable [phone] Juan Rice MD Unavailable [phone] Maxwell Leonardo MD Unavailable Unavailable Laura Delaney APRN Unavailable [phone] Encounter Details Date Type Department Care Team (Late st Contact Info) Description 01/10/2020 Scanned Document [facility] [place] at [address] [address] Provider, Generic Social History Tobacco [...] on filedocumented in this encounter Care Teams Director Of Revenue Cycle Management Relationship Specialty Start Date End Date Nader Rodgers MD [address] [place] [address] PCP - General 12/27/19 Everett Jones Pla, MD [address] [place] [address] Laborer Construction [employer]ak [employer] Cardiovascular Disease 12/27/19 Juan Rice MD [address] [place] [address] Surgery, Orthopedic 02/12/20 Maxwell Leonardo MD [address] [place] [address] Referring Provider Gastroenterology 02/12/[address] [facility] [address] [address] Advanced Practitioner Sleep Medicine 02/12/20 documented as of this encounter
== END 2025-09-02 10:00 | disposition home or self-care (01) ==
LOC: HO.HMGAL 09:59
PROVIDERS: PCP Internal Medicine; Visit Provider Registered Nurse Emergency
DX: J30.89 Other allergic rhinitis (principal)
CPT/HCPCS: 95117; 95165